=== PATIENT | male | born 1945 | race Caucasian/White ===

== ENCOUNTER 2023-04-11 02:50 | Inpatient (IN) | payer OTHER, MEDICARE ==
[2023-04-11 03:30] LABS: Bacteria/HPF None Seen HPF (None Seen); Bilirubin Negative (Negative); Blood, Urine Negative (Negative); CAUTI Indications for Culture Alt mental st,lethar; Clarity Clear (Clear); Glucose, Urine (Dipstick) Normal (Negative); Ketone, Urine 40 mg/dL (Negative); Leukocyte Negative Leu/uL (Negative); Nitrite Negative (Negative); Protein, Urine (Dipstick) 30 mg/dL (Neg-Trace); RBC/HPF 0-3 HPF (0-3); Specific Gravity, Urine 1.026 (1.002-1.036); Squamous Epithelial 0-3 HPF (0-3); WBC/HPF 0-3 HPF (0-3); pH, Urine 5.5 (5.0-9.0)
[2023-04-11] MEDS ORDERED: Multivitamins, Adult 10 ML, Thiamine HCl 100 MG, Folic Acid 1 MG in Dextrose 5 %-0.45 %... IV SCH (03:30)
[2023-04-11 03:31] LABS: Urine Culture Reflex No No
[2023-04-11 03:35] LABS: Amphetamine Not Detected (NotDetected); Barbiturates Screen Not Detected (NotDetected); Benzodiazepine Screen Not Detected (NotDetected); Cocaine Metabolite Screen Not Detected (NotDetected); Methadone Not Detected (NotDetected); Methamphetamine Not Detected (NotDetected); Opiate Screen Not Detected (NotDetected); Oxycodone Screen Not Detected (NotDetected); Phencyclidine (PCP) Not Detected (NotDetected); THC/Cannabinoid Screen Not Detected (NotDetected); Tricyclic Screen Not Detected (NotDetected)
[2023-04-11 03:48] LABS: #Basophils 0.1 thou/uL (0.0-0.2); %Basophils 0.5 % (0.0-1.0); %Eosinophils 0.1 % (0.0-10.0); %Lymphocytes 7.7 % (21.0-51.0); %Monocytes 8.6 % (0.0-10.0); %Neutrophils 82.7 % (42.0-75.0); Hematocrit 38.7 % (42.0-52.0); Mean Corpuscular HGB CONC 33.6 g/dL (32.0-36.0); Mean Corpuscular Hemoglobin 31.6 pg (27.0-31.0); Mean Corpuscular Volume 93.9 fl (78.0-98.0); Mean Platelet Volume 10.3 fL (7.4-10.4); Platelet Count 275 10x3/uL (130-400); RBC Distribution Width 14.2 % (11.5-14.5); Red Blood Cell (RBC) Count 4.12 mill/uL (4.70-6.10); White Blood Cell (WBC) Count 12.1 10x3/uL (4.8-10.8)
[2023-04-11 04:01] LABS: Prothrombin Time 13.5 sec (12.0-14.7)
[2023-04-11 04:02] LABS: Acetaminophen Less than 10 mcg/mL (10.0-30.0); Alcohol Less than 10.0 mg/dL (Less than 10); Magnesium 1.6 mg/dL (1.6-2.6); PTT 32.1 sec (22.9-36.1); Salicylate Less than 8.0 mg/dL (15.0-30.0)
[2023-04-11 04:04] LABS: ALT (SGPT) 8 U/L (8-55); AST (SGOT) 12 U/L (5-34); Albumin 3.4 g/dL (3.4-4.8); Alkaline Phosphatase 63 U/L (40-110); Anion Gap 13 mmol/L (10-20); BUN (Urea Nitrogen) 11 mg/dL (8.4-25.7); Bilirubin, Total 0.5 mg/dL (0.2-1.2); CK (CPK) 143 U/L (30-200); Calc. Creatinine Clearance 0 mL/min (70-130); Calcium 8.6 mg/dL (7.8-10.44); Carbon Dioxide 24 mmol/L (23-31); Chloride 105 mmol/L (98-107); Estimated GFR 95; Globulin 2.9 g/dL (2.4-3.5); Glucose 93 mg/dL (83-110); Potassium 3.6 mmol/L (3.5-5.1); Protein, Total 6.3 g/dL (5.8-8.1); Sodium 138 mmol/L (136-145)
[2023-04-11] MEDS ORDERED: Bisacodyl 10 MG SUPP PR PRN (07:36)
[2023-04-11] MEDS ORDERED: Acetaminophen 325 MG TAB PO PRN (07:36)
[2023-04-11] MEDS ORDERED: Ondansetron PF 4 MG/2 ML Vial IVP PRN (07:36)
[2023-04-11] MEDS ORDERED: Bisacodyl 5 MG TAB PO PRN (07:36)
[2023-04-11] MEDS ORDERED: Aspirin Chewable 81 MG TAB ONE (07:39)
[2023-04-11] MEDS ORDERED: Sodium Chloride 0.9% 1,000 ML IV SCH (07:45)
[2023-04-11 09:08] LABS: Troponin I 0.014 ng/mL (< 0.028)
[2023-04-11 12:34] LABS: Troponin I 0.017 ng/mL (< 0.028)
[2023-04-11 12:55] VITALS: BMI 19.0
[2023-04-11] MEDS: Atorvastatin Calcium 40 MG TAB PO SCH (20:32)
[2023-04-12 05:19] LABS: #Basophils 0.1 thou/uL (0.0-0.2); #Eosinphils 0.4 thou/uL (0.0-0.7); #Monocytes 1.3 thou/uL (0.11-0.59); #Neutrophils 7.9 thou/uL (1.40-6.50); %Basophils 0.6 % (0.0-1.0); %Eosinophils 3.2 % (0.0-10.0); %Lymphocytes 10.4 % (21.0-51.0); %Monocytes 12.3 % (0.0-10.0); %Neutrophils 73.3 % (42.0-75.0); Hematocrit 35.2 % (42.0-52.0); Hemoglobin 11.8 g/dL (14.0-18.0); Mean Corpuscular HGB CONC 33.5 g/dL (32.0-36.0); Mean Corpuscular Hemoglobin 31.7 pg (27.0-31.0); Mean Corpuscular Volume 94.6 fl (78.0-98.0); Mean Platelet Volume 10.1 fL (7.4-10.4); Platelet Count 220 10x3/uL (130-400); RBC Distribution Width 14.2 % (11.5-14.5); Red Blood Cell (RBC) Count 3.72 mill/uL (4.70-6.10); White Blood Cell (WBC) Count 10.8 10x3/uL (4.8-10.8)
[2023-04-12 05:35] LABS: ALT (SGPT) Less than 7 U/L (8-55); AST (SGOT) 14 U/L (5-34); Alkaline Phosphatase 57 U/L (40-110); Anion Gap 13 mmol/L (10-20); BUN (Urea Nitrogen) 5 mg/dL (8.4-25.7); Bilirubin, Direct 0.3 mg/dL (0.1-0.3); Bilirubin, Total 0.7 mg/dL (0.2-1.2); Calc. Creatinine Clearance 83 mL/min (70-130); Calcium 8.3 mg/dL (7.8-10.44); Carbon Dioxide 22 mmol/L (23-31); Cardiac Risk 3.3 (Less than 4.5); Chloride 105 mmol/L (98-107); Cholesterol 160 mg/dl (< 200 Desired); Estimated GFR 101; Glucose 98 mg/dL (83-110); HDL Cholesterol 48 mg/dL (>60 Neg Risk); LDL Cholesterol, Calculated 99 mg/dL; Magnesium 1.5 mg/dL (1.6-2.6); Potassium 3.6 mmol/L (3.5-5.1); Protein, Total 5.8 g/dL (5.8-8.1); Sodium 136 mmol/L (136-145); Triglycerides 67 mg/dL (Less than 150)
[2023-04-12] MEDS: Aspirin 81 mg Enteric Coated Tablet PO SCH (08:45)
[2023-04-12] MEDS: Ipratropium/Albuterol 3 ML NEB NEB SCH ×2 (19:10→23:05)
[2023-04-12] MEDS: Mometasone 200 MCG/Formoterol 5 MCG 120 PUFF INHALER INH SCH (19:14)
[2023-04-12] MEDS: Atorvastatin Calcium 40 MG TAB PO SCH (21:13)
[2023-04-13] MEDS: Ipratropium/Albuterol 3 ML NEB NEB SCH ×6 (03:46→22:09)
[2023-04-13 05:02] LABS: #Basophils 0.1 thou/uL (0.0-0.2); #Eosinphils 0.5 thou/uL (0.0-0.7); #Monocytes 1.3 thou/uL (0.11-0.59); #Neutrophils 5.8 thou/uL (1.40-6.50); %Basophils 0.7 % (0.0-1.0); %Eosinophils 5.7 % (0.0-10.0); %Lymphocytes 14.5 % (21.0-51.0); %Monocytes 14.6 % (0.0-10.0); %Neutrophils 64.3 % (42.0-75.0); Hematocrit 34.1 % (42.0-52.0); Hemoglobin 11.7 g/dL (14.0-18.0); Mean Corpuscular HGB CONC 34.3 g/dL (32.0-36.0); Mean Corpuscular Hemoglobin 31.7 pg (27.0-31.0); Mean Corpuscular Volume 92.4 fl (78.0-98.0); Mean Platelet Volume 10.3 fL (7.4-10.4); Platelet Count 215 10x3/uL (130-400); RBC Distribution Width 13.9 % (11.5-14.5); Red Blood Cell (RBC) Count 3.69 mill/uL (4.70-6.10); White Blood Cell (WBC) Count 9.1 10x3/uL (4.8-10.8)
[2023-04-13 05:27] LABS: Anion Gap 12 mmol/L (10-20); BUN (Urea Nitrogen) 7 mg/dL (8.4-25.7); Calc. Creatinine Clearance 78 mL/min (70-130); Calcium 8.6 mg/dL (7.8-10.44); Carbon Dioxide 25 mmol/L (23-31); Chloride 102 mmol/L (98-107); Estimated GFR 99; Glucose 96 mg/dL (83-110); Magnesium 1.6 mg/dL (1.6-2.6); Potassium 3.7 mmol/L (3.5-5.1); Sodium 135 mmol/L (136-145)
[2023-04-13] MEDS: Mometasone 200 MCG/Formoterol 5 MCG 120 PUFF INHALER INH SCH ×2 (07:35→19:06)
[2023-04-13] MEDS: Aspirin 81 mg Enteric Coated Tablet PO SCH (10:19)
[2023-04-13] MEDS ORDERED: levETIRAcetam 500 MG TAB PO SCH (11:45)
[2023-04-13] MEDS: levETIRAcetam 500 MG TAB PO SCH (21:30)
[2023-04-13] MEDS: Atorvastatin Calcium 40 MG TAB PO SCH (21:30)
[2023-04-14] MEDS: Ipratropium/Albuterol 3 ML NEB NEB SCH ×6 (01:40→22:23)
[2023-04-14 05:17] LABS: #Basophils 0.1 thou/uL (0.0-0.2); #Eosinphils 0.3 thou/uL (0.0-0.7); #Monocytes 1.4 thou/uL (0.11-0.59); #Neutrophils 7.8 thou/uL (1.40-6.50); %Basophils 0.7 % (0.0-1.0); %Eosinophils 2.7 % (0.0-10.0); %Lymphocytes 10.2 % (21.0-51.0); %Monocytes 13.1 % (0.0-10.0); %Neutrophils 72.9 % (42.0-75.0); Hematocrit 33.4 % (42.0-52.0); Hemoglobin 11.2 g/dL (14.0-18.0); Mean Corpuscular HGB CONC 33.5 g/dL (32.0-36.0); Mean Corpuscular Hemoglobin 31.6 pg (27.0-31.0); Mean Corpuscular Volume 94.4 fl (78.0-98.0); Mean Platelet Volume 10.6 fL (7.4-10.4); Platelet Count 238 10x3/uL (130-400); Red Blood Cell (RBC) Count 3.54 mill/uL (4.70-6.10); White Blood Cell (WBC) Count 10.7 10x3/uL (4.8-10.8)
[2023-04-14 05:44] LABS: Anion Gap 12 mmol/L (10-20); BUN (Urea Nitrogen) 10 mg/dL (8.4-25.7); Calc. Creatinine Clearance 71 mL/min (70-130); Calcium 8.7 mg/dL (7.8-10.44); Carbon Dioxide 26 mmol/L (23-31); Chloride 101 mmol/L (98-107); Estimated GFR 96; Glucose 103 mg/dL (83-110); Magnesium 1.6 mg/dL (1.6-2.6); Potassium 3.7 mmol/L (3.5-5.1); Sodium 135 mmol/L (136-145)
[2023-04-14] MEDS: Mometasone 200 MCG/Formoterol 5 MCG 120 PUFF INHALER INH SCH ×2 (06:34→18:21)
[2023-04-14] MEDS: Aspirin 81 mg Enteric Coated Tablet PO SCH (15:53)
[2023-04-14] MEDS: levETIRAcetam 500 MG TAB PO SCH ×2 (15:53→20:15)
[2023-04-14] MEDS: Senokot S 8.6-50 MG TAB PO PRN (15:53)
[2023-04-14] MEDS: Atorvastatin Calcium 40 MG TAB PO SCH (20:15)
[2023-04-15] MEDS: Ipratropium/Albuterol 3 ML NEB NEB SCH ×4 (02:10→14:20)
[2023-04-15] MEDS: Mometasone 200 MCG/Formoterol 5 MCG 120 PUFF INHALER INH SCH (06:31)
[2023-04-15] MEDS: levETIRAcetam 500 MG TAB PO SCH (09:58)
[2023-04-15] MEDS: Aspirin 81 mg Enteric Coated Tablet PO SCH (09:58)
[2023-04-15] MEDS: Senokot S 8.6-50 MG TAB PO PRN (10:10)
[2023-04-15 11:31] VITALS: BP 132/60; TEMP 98.3
== END 2023-04-15 14:55 | DRG 65 ==
LOC: SUATTDRO 02:50 → ERS 02:50 → ERHOLD 07:36 → 2SW 11:13 → OBSVTOIN 12:43 → 2SE 17:13
PROVIDERS: ADMIT Family Medicine; ATTEND Family Medicine
PROC: 0T9B70Z Drainage of Bladder with Drainage Device, Via Natural or Artificial Opening (ICD-10-PCS; principal; 2023-04-11)
PROC: 4A00X4Z Measurement of Central Nervous Electrical Activity, External Approach (ICD-10-PCS; 2023-04-12)
DX: I63.512 Cerebral infarction due to unspecified occlusion or stenosis of left middle cerebral artery (principal); G81.91 Hemiplegia, unspecified affecting right dominant side; R20.0 Anesthesia of skin; J44.9 Chronic obstructive pulmonary disease, unspecified; I10 Essential (primary) hypertension; R55 Syncope and collapse; R29.712 NIHSS score 12; Z79.82 Long term (current) use of aspirin; Z98.49 Cataract extraction status, unspecified eye; Z79.899 Other long term (current) drug therapy; Z51.5 Encounter for palliative care; Z66 Do not resuscitate
CPT/HCPCS: 36415; 36416; 51701; 70450; 70551; 71045; 80048; 80053; 80061; 80076; 80306; 80307; 81001; 82550; 83036; 83735; 84443; 84484; 85025; 85610; 85730; 93005; 93306; 93880; 94640; 94664; 94760; 95712; 95819; 95957; 96361; 96365; 96366; 97139; J3411; J7042; J7050; J7620

== ENCOUNTER 2023-07-14 11:19 | Inpatient (IN) | payer OTHER ==
[2023-07-14] MEDS ORDERED: Cefepime 1 GM VIAL ONE (11:52)
[2023-07-14] MEDS ORDERED: Sodium Chloride 0.9% 100 ML ONE (11:53)
[2023-07-14 12:12] LABS: #Basophils 0.1 thou/uL (0.0-0.2); #Monocytes 0.5 thou/uL (0.11-0.59); #Neutrophils 9.1 thou/uL (1.40-6.50); %Basophils 0.5 % (0.0-1.0); %Eosinophils 0.2 % (0.0-10.0); %Lymphocytes 8.4 % (21.0-51.0); %Monocytes 5.1 % (0.0-10.0); %Neutrophils 85.2 % (42.0-75.0); Hemoglobin 12.7 g/dL (14.0-18.0); Mean Corpuscular HGB CONC 34.3 g/dL (32.0-36.0); Mean Corpuscular Hemoglobin 30.3 pg (27.0-31.0); Mean Corpuscular Volume 88.3 fl (78.0-98.0); Mean Platelet Volume 9.4 fL (7.4-10.4); Platelet Count 466 10x3/uL (130-400); RBC Distribution Width 16.2 % (11.5-14.5); Red Blood Cell (RBC) Count 4.19 mill/uL (4.70-6.10); White Blood Cell (WBC) Count 10.6 10x3/uL (4.8-10.8)
[2023-07-14 12:37] LABS: ALT (SGPT) Less than 7 U/L (8-55); AST (SGOT) 12 U/L (5-34); Albumin 3.3 g/dL (3.4-4.8); Alkaline Phosphatase 93 U/L (40-110); Anion Gap 17 mmol/L (10-20); BUN (Urea Nitrogen) 8 mg/dL (8.4-25.7); Bilirubin, Total 0.4 mg/dL (0.2-1.2); Calc. Creatinine Clearance 0 mL/min (70-130); Calcium 9.1 mg/dL (7.8-10.44); Carbon Dioxide 20 mmol/L (23-31); Chloride 96 mmol/L (98-107); Estimated GFR 101; Glucose 76 mg/dL (83-110); Potassium 3.9 mmol/L (3.5-5.1); Protein, Total 6.3 g/dL (5.8-8.1); Sodium 129 mmol/L (136-145)
[2023-07-14 12:39] LABS: INR-International Normal Ratio 0.9; Prothrombin Time 12.8 sec (12.0-14.7)
[2023-07-14 12:40] LABS: PTT 43.2 sec (22.9-36.1)
[2023-07-14] MEDS ORDERED: Vancomycin 1 GM/200 ML (FROZEN) BAG ONE (12:58)
[2023-07-14 14:20] LABS: Bacteria/HPF None Seen HPF (None Seen); Bilirubin Negative (Negative); Blood, Urine Negative (Negative); CAUTI Indications for Culture Fever or rigors; Clarity Clear (Clear); Glucose, Urine (Dipstick) Normal (Negative); Ketone, Urine 60 mg/dL (Negative); Leukocyte Negative Leu/uL (Negative); Nitrite Negative (Negative); Protein, Urine (Dipstick) Negative (Neg-Trace); RBC/HPF 0-3 HPF (0-3); Specific Gravity, Urine 1.015 (1.002-1.036); Squamous Epithelial None Seen HPF (0-3); Urobilinogen Normal mg/dL (Less than 2); WBC/HPF 0-3 HPF (0-3); pH, Urine 5.5 (5.0-9.0)
[2023-07-14 14:21] LABS: Urine Culture Reflex No No
[2023-07-14 18:07] VITALS: BMI 16.0
[2023-07-14] MEDS ORDERED: Acetaminophen 325 MG TAB PO PRN (18:07)
[2023-07-14] MEDS ORDERED: Ondansetron PF 4 MG/2 ML Vial IVP PRN (18:07)
[2023-07-14] MEDS: Nicotine 14 MG PATCH TD SCH (18:44)
[2023-07-14] MEDS: dilTIAZem 30 MG TAB PO SCH ×2 (18:44→19:52)
[2023-07-14] MEDS: Mometasone 200 MCG/Formoterol 5 MCG 120 PUFF INHALER INH SCH (19:34)
[2023-07-14] MEDS: Atorvastatin Calcium 40 MG TAB PO SCH (19:52)
[2023-07-14] MEDS: levETIRAcetam 500 MG TAB PO SCH (19:52)
[2023-07-14] MEDS: HYDROcodone/Acetaminophen 5/325 mg Tablet PO PRN (19:52)
[2023-07-14] MEDS: Cefepime 2 GM in Sodium Chloride 0.9% 100 ML IVPB SCH (19:54)
[2023-07-15] MEDS: Vancomycin HCl 750 MG in Sodium Chloride 0.9% 250 ML 250 ML IVPB SCH ×2 (00:25→13:38)
[2023-07-15 04:27] LABS: #Basophils 0.1 thou/uL (0.0-0.2); #Eosinphils 0.3 thou/uL (0.0-0.7); #Neutrophils 7.3 thou/uL (1.40-6.50); %Basophils 0.7 % (0.0-1.0); %Eosinophils 3.2 % (0.0-10.0); %Monocytes 9.1 % (0.0-10.0); %Neutrophils 70.4 % (42.0-75.0); Hematocrit 30.5 % (42.0-52.0); Hemoglobin 10.3 g/dL (14.0-18.0); Mean Corpuscular HGB CONC 33.8 g/dL (32.0-36.0); Mean Corpuscular Hemoglobin 29.7 pg (27.0-31.0); Mean Corpuscular Volume 87.9 fl (78.0-98.0); Mean Platelet Volume 9.5 fL (7.4-10.4); Platelet Count 428 10x3/uL (130-400); RBC Distribution Width 16.6 % (11.5-14.5); Red Blood Cell (RBC) Count 3.47 mill/uL (4.70-6.10); White Blood Cell (WBC) Count 10.4 10x3/uL (4.8-10.8)
[2023-07-15 04:52] LABS: Anion Gap 13 mmol/L (10-20); BUN (Urea Nitrogen) 6 mg/dL (8.4-25.7); Calc. Creatinine Clearance 78 mL/min (70-130); Calcium 7.9 mg/dL (7.8-10.44); Carbon Dioxide 24 mmol/L (23-31); Chloride 100 mmol/L (98-107); Estimated GFR 102; Glucose 83 mg/dL (83-110); Potassium 3.6 mmol/L (3.5-5.1); Sodium 133 mmol/L (136-145)
[2023-07-15] MEDS: Mometasone 200 MCG/Formoterol 5 MCG 120 PUFF INHALER INH SCH ×2 (07:00→18:37)
[2023-07-15] MEDS: Cefepime 2 GM in Sodium Chloride 0.9% 100 ML IVPB SCH ×2 (09:46→20:21)
[2023-07-15] MEDS: Aspirin 81 mg Enteric Coated Tablet PO SCH (09:46)
[2023-07-15] MEDS: levETIRAcetam 500 MG TAB PO SCH ×2 (09:46→20:21)
[2023-07-15] MEDS: dilTIAZem 30 MG TAB PO SCH ×4 (09:46→20:23)
[2023-07-15] MEDS: HYDROcodone/Acetaminophen 5/325 mg Tablet PO PRN ×2 (09:47→21:02)
[2023-07-15] MEDS ORDERED: Lidocaine 1% (PF) 30 ML VIAL SC SCH (11:15)
[2023-07-15 19:06] LABS: Cardiac Risk 3.6 (Less than 4.5)
[2023-07-15] MEDS: Nicotine 14 MG PATCH TD SCH (20:21)
[2023-07-15] MEDS: Atorvastatin Calcium 40 MG TAB PO SCH (20:21)
[2023-07-16] MEDS: Vancomycin HCl 750 MG in Sodium Chloride 0.9% 250 ML 250 ML IVPB SCH (00:26)
[2023-07-16] MEDS: HYDROcodone/Acetaminophen 5/325 mg Tablet PO PRN ×4 (01:31→20:58)
[2023-07-16 02:24] LABS: Vancomycin, Trough 25.3 ug/mL
[2023-07-16] MEDS: Mometasone 200 MCG/Formoterol 5 MCG 120 PUFF INHALER INH SCH ×2 (06:59→18:37)
[2023-07-16] MEDS: dilTIAZem 30 MG TAB PO SCH ×4 (09:00→20:59)
[2023-07-16] MEDS: Aspirin 81 mg Enteric Coated Tablet PO SCH (09:00)
[2023-07-16] MEDS: Cefepime 2 GM in Sodium Chloride 0.9% 100 ML IVPB SCH ×2 (09:00→20:59)
[2023-07-16] MEDS: levETIRAcetam 500 MG TAB PO SCH (09:00)
[2023-07-16] MEDS: Atorvastatin Calcium 40 MG TAB PO SCH (20:59)
[2023-07-17] MEDS: HYDROcodone/Acetaminophen 5/325 mg Tablet PO PRN (05:40)
[2023-07-17] MEDS: Mometasone 200 MCG/Formoterol 5 MCG 120 PUFF INHALER INH SCH ×2 (06:55→18:44)
[2023-07-17] MEDS: Cefepime 2 GM in Sodium Chloride 0.9% 100 ML IVPB SCH ×2 (08:21→21:55)
[2023-07-17] MEDS: dilTIAZem 30 MG TAB PO SCH ×4 (08:21→21:56)
[2023-07-17] MEDS: Aspirin 81 mg Enteric Coated Tablet PO SCH (09:03)
[2023-07-17] MEDS: Morphine 2 MG/ML VIAL SLOW IVP PRN (16:07)
[2023-07-17] MEDS: Atorvastatin Calcium 40 MG TAB PO SCH (21:56)
[2023-07-18] MEDS: Mometasone 200 MCG/Formoterol 5 MCG 120 PUFF INHALER INH SCH ×2 (07:37→19:00)
[2023-07-18] MEDS: HYDROcodone/Acetaminophen 5/325 mg Tablet PO PRN (08:13)
[2023-07-18] MEDS: Cefepime 2 GM in Sodium Chloride 0.9% 100 ML IVPB SCH ×2 (08:13→20:39)
[2023-07-18] MEDS: Aspirin 81 mg Enteric Coated Tablet PO SCH (08:13)
[2023-07-18] MEDS: dilTIAZem 30 MG TAB PO SCH ×4 (08:13→20:49)
[2023-07-18] MEDS: Atorvastatin Calcium 40 MG TAB PO SCH (20:39)
[2023-07-19] MEDS: HYDROcodone/Acetaminophen 5/325 mg Tablet PO PRN ×2 (04:06→09:29)
[2023-07-19] MEDS: Mometasone 200 MCG/Formoterol 5 MCG 120 PUFF INHALER INH SCH ×2 (07:11→18:56)
[2023-07-19] MEDS: Cefepime 2 GM in Sodium Chloride 0.9% 100 ML IVPB SCH ×2 (08:03→20:30)
[2023-07-19] MEDS: Aspirin 81 mg Enteric Coated Tablet PO SCH (08:08)
[2023-07-19] MEDS: dilTIAZem 30 MG TAB PO SCH ×4 (08:08→20:30)
[2023-07-19] MEDS ORDERED: SUGAMMADEX SODIUM 200 MG/2 ML VIAL ONE (08:52)
[2023-07-19] MEDS ORDERED: fentaNYL PF 100 MCG/2 ML SYRINGE ONE ×2 (08:52→13:21)
[2023-07-19] MEDS ORDERED: Midazolam HCl 2 mg/2 ml Vial ONE (08:52)
[2023-07-19] MEDS ORDERED: Lidocaine 2% PF 100 mg/5 ml Syringe ONE (08:54)
[2023-07-19] MEDS ORDERED: Dexamethasone 20 MG/5 ML VIAL ONE ×2 (08:54→12:39)
[2023-07-19] MEDS ORDERED: Dexamethasone 4 mg/ml Vial ONE (08:54)
[2023-07-19] MEDS ORDERED: PROPOFOL 20 ML ONE (08:54)
[2023-07-19] MEDS ORDERED: PHENYLEPHRINE-NS 100 MCG/ML 10 ML SYRINGE ONE (08:54)
[2023-07-19] MEDS ORDERED: Heparin 5,000 UNITS/ML VIAL ONE (11:39)
[2023-07-19] MEDS ORDERED: Rocuronium Bromide 50 MG/5 ML VIAL ONE (11:40)
[2023-07-19] MEDS ORDERED: Protamine Sulfate 50 MG/5 ML VIAL ONE (11:40)
[2023-07-19] MEDS ORDERED: Ondansetron PF 4 MG/2 ML Vial ONE (12:39)
[2023-07-19] MEDS ORDERED: Rocuronium Bromide 10 MG/ML (10ML VIAL) ONE (12:39)
[2023-07-19] MEDS ORDERED: Lidocaine 1% PF 5 ML VIAL ONE (12:39)
[2023-07-19] MEDS ORDERED: PROPOFOL 200 MG/20 ML VIAL ONE (12:39)
[2023-07-19] MEDS ORDERED: hydrALAZINE 20 MG/ML VIAL ONE ×2 (13:20→13:21)
[2023-07-19] MEDS ORDERED: Heparin 10,000 UNITS/ 10 ML VIAL ONE (13:48)
[2023-07-19] MEDS ORDERED: Bupivacaine PF 0.5% 30 ML VIAL ONE (14:01)
[2023-07-19] MEDS ORDERED: Fentanyl 100 MCG/2 ML VIAL SLOW IVP PRN (14:58)
[2023-07-19] MEDS ORDERED: fentaNYL 50 mcg/mL 1 mL Vial SLOW IVP SCH (15:15)
[2023-07-19] MEDS: Lactated Ringer's 1,000 ML IV SCH (16:24)
[2023-07-19] MEDS: Atorvastatin Calcium 40 MG TAB PO SCH (20:30)
[2023-07-20] MEDS: HYDROcodone/Acetaminophen 5/325 mg Tablet PO PRN (06:07)
[2023-07-20] MEDS: Mometasone 200 MCG/Formoterol 5 MCG 120 PUFF INHALER INH SCH ×2 (07:53→18:27)
[2023-07-20] MEDS: dilTIAZem 30 MG TAB PO SCH ×4 (08:00→21:15)
[2023-07-20] MEDS: Polyethylene Glycol 3350 17 GM Packet PO SCH (09:53)
[2023-07-20] MEDS: Aspirin 81 mg Enteric Coated Tablet PO SCH (09:53)
[2023-07-20] MEDS: Lactated Ringer's 1,000 ML IV SCH (09:54)
[2023-07-20] MEDS: Cefepime 2 GM in Sodium Chloride 0.9% 100 ML IVPB SCH ×2 (09:54→21:15)
[2023-07-20] MEDS: Morphine 2 MG/ML VIAL SLOW IVP PRN ×2 (11:35→17:24)
[2023-07-20] MEDS ORDERED: Calcium Carbonate 500 MG ChewTAB PO PRN (19:39)
[2023-07-20] MEDS: Atorvastatin Calcium 40 MG TAB PO SCH (21:15)
[2023-07-21] MEDS: HYDROcodone/Acetaminophen 5/325 mg Tablet PO PRN ×2 (04:46→12:09)
[2023-07-21] MEDS ORDERED: EPINEPHrine 1 MG/ML VIAL ONE (06:38)
[2023-07-21] MEDS ORDERED: Protamine Sulfate 50 MG/5 ML VIAL ONE (06:38)
[2023-07-21] MEDS ORDERED: Heparin 5,000 UNITS/ML VIAL ONE (06:38)
[2023-07-21] MEDS ORDERED: Bupivacaine PF 0.5% 30 ML VIAL ONE (06:39)
[2023-07-21] MEDS ORDERED: Lidocaine 2% PF 100 mg/5 ml Syringe ONE (06:52)
[2023-07-21] MEDS ORDERED: PROPOFOL 20 ML ONE (06:52)
[2023-07-21] MEDS ORDERED: SUGAMMADEX SODIUM 200 MG/2 ML VIAL ONE (06:52)
[2023-07-21] MEDS ORDERED: Heparin 10,000 UNITS/ 10 ML VIAL ONE (06:52)
[2023-07-21] MEDS ORDERED: Midazolam HCl 2 mg/2 ml Vial ONE (06:52)
[2023-07-21] MEDS ORDERED: ePHEDrine Sulfate 50 MG/10 ML VIAL ONE (06:52)
[2023-07-21] MEDS ORDERED: fentaNYL PF 100 MCG/2 ML SYRINGE ONE (06:52)
[2023-07-21] MEDS ORDERED: Lidocaine 2% PF 5 ML VIAL ONE (06:52)
[2023-07-21] MEDS ORDERED: Ondansetron PF 4 MG/2 ML Vial ONE ×2 (06:53→07:32)
[2023-07-21] MEDS ORDERED: Sterile Water 10 ML ONE (06:53)
[2023-07-21] MEDS ORDERED: Dexamethasone 4 mg/ml Vial ONE (06:53)
[2023-07-21] MEDS ORDERED: Rocuronium Bromide 10 MG/ML (10ML VIAL) ONE ×2 (06:53→07:32)
[2023-07-21] MEDS ORDERED: PHENYLEPHRINE-NS 100 MCG/ML 10 ML SYRINGE ONE (06:53)
[2023-07-21] MEDS ORDERED: CEFAZOLIN 1 GM VIAL ONE (06:54)
[2023-07-21] MEDS: Lactated Ringer's 1,000 ML IV SCH ×2 (06:58→12:10)
[2023-07-21] MEDS: Mometasone 200 MCG/Formoterol 5 MCG 120 PUFF INHALER INH SCH ×2 (06:58→18:25)
[2023-07-21] MEDS ORDERED: Dexamethasone 20 MG/5 ML VIAL ONE (07:32)
[2023-07-21] MEDS ORDERED: Lidocaine 1% PF 5 ML VIAL ONE (07:32)
[2023-07-21] MEDS ORDERED: PROPOFOL 200 MG/20 ML VIAL ONE (07:32)
[2023-07-21] MEDS: dilTIAZem 30 MG TAB PO SCH ×4 (07:37→20:37)
[2023-07-21] MEDS ORDERED: fentaNYL 50 mcg/mL 1 mL Vial ONE (09:06)
[2023-07-21] MEDS ORDERED: Sevoflurane 250 ML INH ANEST BOTTLE ONE (09:19)
[2023-07-21] MEDS: Aspirin 81 mg Enteric Coated Tablet PO SCH (09:37)
[2023-07-21] MEDS: Polyethylene Glycol 3350 17 GM Packet PO SCH (09:37)
[2023-07-21] MEDS: Cefepime 2 GM in Sodium Chloride 0.9% 100 ML IVPB SCH ×2 (11:55→20:37)
[2023-07-21] MEDS: Atorvastatin Calcium 40 MG TAB PO SCH (20:37)
[2023-07-22 04:11] LABS: #Monocytes 1.5 thou/uL (0.11-0.59); #Neutrophils 10.7 thou/uL (1.40-6.50); %Basophils 0.1 % (0.0-1.0); %Lymphocytes 5.1 % (21.0-51.0); %Monocytes 11.3 % (0.0-10.0); %Neutrophils 83.2 % (42.0-75.0); Hematocrit 24.6 % (42.0-52.0); Hemoglobin 8.3 g/dL (14.0-18.0); Mean Corpuscular HGB CONC 33.7 g/dL (32.0-36.0); Mean Corpuscular Hemoglobin 30.1 pg (27.0-31.0); Mean Corpuscular Volume 89.1 fl (78.0-98.0); Mean Platelet Volume 10.5 fL (7.4-10.4); Platelet Count 306 10x3/uL (130-400); Red Blood Cell (RBC) Count 2.76 mill/uL (4.70-6.10); White Blood Cell (WBC) Count 12.9 10x3/uL (4.8-10.8)
[2023-07-22 04:47] LABS: Anion Gap 12 mmol/L (10-20); BUN (Urea Nitrogen) 13 mg/dL (8.4-25.7); Calc. Creatinine Clearance 75 mL/min (70-130); Carbon Dioxide 26 mmol/L (23-31); Chloride 99 mmol/L (98-107); Estimated GFR 101; Glucose 117 mg/dL (83-110); Potassium 4.1 mmol/L (3.5-5.1); Sodium 133 mmol/L (136-145)
[2023-07-22] MEDS: Mometasone 200 MCG/Formoterol 5 MCG 120 PUFF INHALER INH SCH ×2 (07:08→18:34)
[2023-07-22] MEDS: Cefepime 2 GM in Sodium Chloride 0.9% 100 ML IVPB SCH ×2 (08:58→20:21)
[2023-07-22] MEDS: dilTIAZem 30 MG TAB PO SCH ×4 (08:58→20:20)
[2023-07-22] MEDS: Multivitamin W/ Minerals 1 TAB PO SCH (08:58)
[2023-07-22] MEDS: Aspirin 81 mg Enteric Coated Tablet PO SCH (08:58)
[2023-07-22] MEDS: Multivit, Therapeutic 1 TAB PO SCH (08:59)
[2023-07-22] MEDS: Thiamine 100 MG TAB PO SCH (08:59)
[2023-07-22] MEDS: Polyethylene Glycol 3350 17 GM Packet PO SCH (08:59)
[2023-07-22] MEDS: Folic Acid 1 MG TAB PO SCH (08:59)
[2023-07-22] MEDS: HYDROcodone/Acetaminophen 5/325 mg Tablet PO PRN ×2 (11:30→17:15)
[2023-07-22] MEDS: Atorvastatin Calcium 40 MG TAB PO SCH (20:21)
[2023-07-23] MEDS: Mometasone 200 MCG/Formoterol 5 MCG 120 PUFF INHALER INH SCH ×2 (07:13→19:29)
[2023-07-23] MEDS: Polyethylene Glycol 3350 17 GM Packet PO SCH (08:15)
[2023-07-23] MEDS: dilTIAZem 30 MG TAB PO SCH ×4 (08:15→20:55)
[2023-07-23] MEDS: Folic Acid 1 MG TAB PO SCH (08:15)
[2023-07-23] MEDS: HYDROcodone/Acetaminophen 5/325 mg Tablet PO PRN ×2 (08:15→14:52)
[2023-07-23] MEDS: Multivit, Therapeutic 1 TAB PO SCH (08:15)
[2023-07-23] MEDS: Cefepime 2 GM in Sodium Chloride 0.9% 100 ML IVPB SCH ×2 (08:15→20:55)
[2023-07-23] MEDS: Aspirin 81 mg Enteric Coated Tablet PO SCH (08:15)
[2023-07-23] MEDS: Thiamine 100 MG TAB PO SCH (08:15)
[2023-07-23] MEDS: Multivitamin W/ Minerals 1 TAB PO SCH (10:59)
[2023-07-23] MEDS ORDERED: Magnesium Citrate 300 ML BOT PO SCH (11:45)
[2023-07-23] MEDS: Atorvastatin Calcium 40 MG TAB PO SCH (20:55)
[2023-07-24] MEDS: Mometasone 200 MCG/Formoterol 5 MCG 120 PUFF INHALER INH SCH ×2 (07:56→19:54)
[2023-07-24] MEDS: Cefepime 2 GM in Sodium Chloride 0.9% 100 ML IVPB SCH ×2 (08:45→20:30)
[2023-07-24] MEDS: Thiamine 100 MG TAB PO SCH (08:45)
[2023-07-24] MEDS: Folic Acid 1 MG TAB PO SCH (08:45)
[2023-07-24] MEDS: Multivitamin W/ Minerals 1 TAB PO SCH (08:45)
[2023-07-24] MEDS: Aspirin 81 mg Enteric Coated Tablet PO SCH (08:45)
[2023-07-24] MEDS: Multivit, Therapeutic 1 TAB PO SCH (08:45)
[2023-07-24] MEDS: dilTIAZem 30 MG TAB PO SCH ×4 (08:45→20:30)
[2023-07-24] MEDS: Polyethylene Glycol 3350 17 GM Packet PO SCH (08:46)
[2023-07-24] MEDS: Atorvastatin Calcium 40 MG TAB PO SCH (20:31)
[2023-07-24] MEDS: Apixaban 5 MG TAB PO SCH (20:32)
[2023-07-25] MEDS: Mometasone 200 MCG/Formoterol 5 MCG 120 PUFF INHALER INH SCH ×2 (06:58→18:45)
[2023-07-25] MEDS: Aspirin 81 mg Enteric Coated Tablet PO SCH (08:19)
[2023-07-25] MEDS: Apixaban 5 MG TAB PO SCH ×2 (08:19→22:15)
[2023-07-25] MEDS: dilTIAZem 30 MG TAB PO SCH ×4 (08:19→22:15)
[2023-07-25] MEDS: Multivitamin W/ Minerals 1 TAB PO SCH (08:20)
[2023-07-25] MEDS: Multivit, Therapeutic 1 TAB PO SCH (08:20)
[2023-07-25] MEDS: Folic Acid 1 MG TAB PO SCH (08:20)
[2023-07-25] MEDS: Thiamine 100 MG TAB PO SCH (08:20)
[2023-07-25] MEDS: Cefepime 2 GM in Sodium Chloride 0.9% 100 ML IVPB SCH ×2 (08:20→22:13)
[2023-07-25] MEDS: Polyethylene Glycol 3350 17 GM Packet PO SCH (08:21)
[2023-07-25] MEDS ORDERED: Gabapentin 300 MG CAP PO SCH (12:30)
[2023-07-25] MEDS: Atorvastatin Calcium 40 MG TAB PO SCH (22:14)
[2023-07-25] MEDS: Gabapentin 300 MG CAP PO SCH (22:15)
[2023-07-26] MEDS: Mometasone 200 MCG/Formoterol 5 MCG 120 PUFF INHALER INH SCH ×2 (07:50→18:01)
[2023-07-26] MEDS: dilTIAZem 30 MG TAB PO SCH ×4 (08:13→21:59)
[2023-07-26] MEDS: Multivit, Therapeutic 1 TAB PO SCH (08:13)
[2023-07-26] MEDS: Thiamine 100 MG TAB PO SCH (08:13)
[2023-07-26] MEDS: Aspirin 81 mg Enteric Coated Tablet PO SCH (08:13)
[2023-07-26] MEDS: Folic Acid 1 MG TAB PO SCH (08:13)
[2023-07-26] MEDS: Polyethylene Glycol 3350 17 GM Packet PO SCH (08:14)
[2023-07-26] MEDS: Apixaban 5 MG TAB PO SCH ×2 (08:14→21:59)
[2023-07-26] MEDS: Gabapentin 300 MG CAP PO SCH ×2 (08:14→21:59)
[2023-07-26] MEDS: Multivitamin W/ Minerals 1 TAB PO SCH (08:14)
[2023-07-26 08:34] LABS: #Eosinphils 0.6 thou/uL (0.0-0.7); #Monocytes 1.4 thou/uL (0.11-0.59); #Neutrophils 10.3 thou/uL (1.40-6.50); %Basophils 0.1 % (0.0-1.0); %Eosinophils 4.2 % (0.0-10.0); %Lymphocytes 5.6 % (21.0-51.0); %Monocytes 10.5 % (0.0-10.0); Hematocrit 28.1 % (42.0-52.0); Hemoglobin 9.4 g/dL (14.0-18.0); Mean Corpuscular HGB CONC 33.5 g/dL (32.0-36.0); Mean Corpuscular Hemoglobin 29.7 pg (27.0-31.0); Mean Corpuscular Volume 88.9 fl (78.0-98.0); Mean Platelet Volume 10.2 fL (7.4-10.4); Platelet Count 454 10x3/uL (130-400); RBC Distribution Width 17.1 % (11.5-14.5); Red Blood Cell (RBC) Count 3.16 mill/uL (4.70-6.10)
[2023-07-26 08:54] LABS: Anion Gap 10 mmol/L (10-20); BUN (Urea Nitrogen) 10 mg/dL (8.4-25.7); Calc. Creatinine Clearance 89 mL/min (70-130); Calcium 7.8 mg/dL (7.8-10.44); Carbon Dioxide 29 mmol/L (23-31); Chloride 94 mmol/L (98-107); Estimated GFR 106; Glucose 103 mg/dL (83-110); Sodium 129 mmol/L (136-145)
[2023-07-26] MEDS ORDERED: Gabapentin 300 MG CAP PO SCH (09:30)
[2023-07-26] MEDS: Atorvastatin Calcium 40 MG TAB PO SCH (21:59)
[2023-07-27] MEDS: Mometasone 200 MCG/Formoterol 5 MCG 120 PUFF INHALER INH SCH ×2 (06:51→17:53)
[2023-07-27] MEDS: Gabapentin 300 MG CAP PO SCH ×2 (08:10→20:10)
[2023-07-27] MEDS: Aspirin 81 mg Enteric Coated Tablet PO SCH (08:11)
[2023-07-27] MEDS: dilTIAZem 30 MG TAB PO SCH ×4 (08:11→20:10)
[2023-07-27] MEDS: Apixaban 5 MG TAB PO SCH ×2 (08:11→20:10)
[2023-07-27] MEDS: Multivitamin W/ Minerals 1 TAB PO SCH (08:11)
[2023-07-27] MEDS: Folic Acid 1 MG TAB PO SCH (08:11)
[2023-07-27] MEDS: Polyethylene Glycol 3350 17 GM Packet PO SCH (08:12)
[2023-07-27] MEDS: Multivit, Therapeutic 1 TAB PO SCH (08:12)
[2023-07-27] MEDS: Thiamine 100 MG TAB PO SCH (08:13)
[2023-07-27] MEDS: Atorvastatin Calcium 40 MG TAB PO SCH (20:10)
[2023-07-28] MEDS: Mometasone 200 MCG/Formoterol 5 MCG 120 PUFF INHALER INH SCH ×2 (07:16→18:51)
[2023-07-28] MEDS: Gabapentin 300 MG CAP PO SCH ×2 (09:53→20:34)
[2023-07-28] MEDS: Multivit, Therapeutic 1 TAB PO SCH (09:54)
[2023-07-28] MEDS: Polyethylene Glycol 3350 17 GM Packet PO SCH ×2 (09:54→14:19)
[2023-07-28] MEDS: Apixaban 5 MG TAB PO SCH ×2 (09:54→20:34)
[2023-07-28] MEDS: Thiamine 100 MG TAB PO SCH (09:54)
[2023-07-28] MEDS: Multivitamin W/ Minerals 1 TAB PO SCH (09:54)
[2023-07-28] MEDS: Folic Acid 1 MG TAB PO SCH (09:54)
[2023-07-28] MEDS: Aspirin 81 mg Enteric Coated Tablet PO SCH (09:54)
[2023-07-28] MEDS: dilTIAZem 30 MG TAB PO SCH ×4 (09:54→20:34)
[2023-07-28] MEDS: Atorvastatin Calcium 40 MG TAB PO SCH (20:34)
[2023-07-29 05:00] LABS: Anion Gap 13 mmol/L (10-20); BUN (Urea Nitrogen) 10 mg/dL (8.4-25.7); Calc. Creatinine Clearance 88 mL/min (70-130); Calcium 7.6 mg/dL (7.8-10.44); Carbon Dioxide 23 mmol/L (23-31); Chloride 91 mmol/L (98-107); Estimated GFR 106; Glucose 93 mg/dL (83-110); Potassium 3.8 mmol/L (3.5-5.1); Sodium 123 mmol/L (136-145)
[2023-07-29] MEDS: Mometasone 200 MCG/Formoterol 5 MCG 120 PUFF INHALER INH SCH ×3 (08:00→21:56)
[2023-07-29] MEDS: Gabapentin 300 MG CAP PO SCH ×2 (08:16→21:14)
[2023-07-29] MEDS: Thiamine 100 MG TAB PO SCH (08:16)
[2023-07-29] MEDS: Multivitamin W/ Minerals 1 TAB PO SCH (08:16)
[2023-07-29] MEDS: Aspirin 81 mg Enteric Coated Tablet PO SCH (08:16)
[2023-07-29] MEDS: dilTIAZem 30 MG TAB PO SCH ×4 (08:17→21:13)
[2023-07-29] MEDS: Polyethylene Glycol 3350 17 GM Packet PO SCH (08:17)
[2023-07-29] MEDS: Apixaban 5 MG TAB PO SCH ×2 (08:17→21:14)
[2023-07-29] MEDS: Folic Acid 1 MG TAB PO SCH (08:17)
[2023-07-29] MEDS: Multivit, Therapeutic 1 TAB PO SCH (08:26)
[2023-07-29] MEDS ORDERED: Ipratropium/Albuterol 3 ML NEB NEB PRN (08:48)
[2023-07-29] MEDS ORDERED: Ipratropium/Albuterol 3 ML NEB NEB SCH (09:00)
[2023-07-29] MEDS: guaiFENesin ER 600 MG TAB PO SCH ×2 (10:46→21:14)
[2023-07-29] MEDS ORDERED: Iopamidol-370 76% 500 ML MDV (1 ML CHARGE) ONE ×2 (11:11→11:13)
[2023-07-29] MEDS ORDERED: Amoxicillin/Potassium Clav 875 MG TAB PO SCH (13:48)
[2023-07-29] MEDS ORDERED: hydrALAZINE 20 MG/ML VIAL SLOW IVP PRN (13:59)
[2023-07-29] MEDS ORDERED: methylPREDNISolone Sod Succ 40 MG VIAL IVP SCH (14:00)
[2023-07-29] MEDS: methylPREDNISolone Sod Succ 40 MG VIAL IVP SCH (21:14)
[2023-07-29] MEDS: Senokot S 8.6-50 MG TAB PO SCH (21:14)
[2023-07-29] MEDS: Atorvastatin Calcium 40 MG TAB PO SCH (21:14)
[2023-07-29] MEDS: Amoxicillin/Potassium Clav 875 MG TAB PO SCH (21:14)
[2023-07-29] MEDS: Ipratropium/Albuterol 3 ML NEB NEB SCH (21:56)
[2023-07-30 05:07] LABS: #Monocytes 0.4 thou/uL (0.11-0.59); #Neutrophils 10.5 thou/uL (1.40-6.50); %Basophils 0.2 % (0.0-1.0); %Lymphocytes 6.5 % (21.0-51.0); %Monocytes 3.1 % (0.0-10.0); %Neutrophils 88.1 % (42.0-75.0); Hemoglobin 8.8 g/dL (14.0-18.0); Mean Corpuscular HGB CONC 33.8 g/dL (32.0-36.0); Mean Corpuscular Hemoglobin 29.8 pg (27.0-31.0); Mean Corpuscular Volume 88.1 fl (78.0-98.0); Mean Platelet Volume 9.9 fL (7.4-10.4); Platelet Count 511 10x3/uL (130-400); RBC Distribution Width 16.9 % (11.5-14.5); Red Blood Cell (RBC) Count 2.95 mill/uL (4.70-6.10); White Blood Cell (WBC) Count 11.9 10x3/uL (4.8-10.8)
[2023-07-30 05:31] LABS: Anion Gap 12 mmol/L (10-20); BUN (Urea Nitrogen) 8 mg/dL (8.4-25.7); Calc. Creatinine Clearance 86 mL/min (70-130); Calcium 8.1 mg/dL (7.8-10.44); Carbon Dioxide 25 mmol/L (23-31); Chloride 96 mmol/L (98-107); Estimated GFR 105; Glucose 153 mg/dL (83-110); Potassium 4.2 mmol/L (3.5-5.1); Sodium 129 mmol/L (136-145)
[2023-07-30 05:52] LABS: Free T4 (Free Thyroxine) 0.78 ng/dL (0.70-1.48)
[2023-07-30] MEDS: Mometasone 200 MCG/Formoterol 5 MCG 120 PUFF INHALER INH SCH ×2 (07:05→19:25)
[2023-07-30] MEDS: Ipratropium/Albuterol 3 ML NEB NEB SCH ×3 (07:07→19:23)
[2023-07-30] MEDS: Polyethylene Glycol 3350 17 GM Packet PO SCH (08:02)
[2023-07-30] MEDS: Gabapentin 300 MG CAP PO SCH ×2 (08:03→20:25)
[2023-07-30] MEDS: Multivitamin W/ Minerals 1 TAB PO SCH (08:03)
[2023-07-30] MEDS: Amoxicillin/Potassium Clav 875 MG TAB PO SCH ×2 (08:03→20:25)
[2023-07-30] MEDS: dilTIAZem 30 MG TAB PO SCH ×4 (08:04→20:25)
[2023-07-30] MEDS: Thiamine 100 MG TAB PO SCH (08:04)
[2023-07-30] MEDS: Folic Acid 1 MG TAB PO SCH (08:04)
[2023-07-30] MEDS: Aspirin 81 mg Enteric Coated Tablet PO SCH (08:04)
[2023-07-30] MEDS: Senokot S 8.6-50 MG TAB PO SCH ×2 (08:04→20:26)
[2023-07-30] MEDS: Multivit, Therapeutic 1 TAB PO SCH (08:04)
[2023-07-30] MEDS: guaiFENesin ER 600 MG TAB PO SCH ×2 (08:04→20:25)
[2023-07-30] MEDS: methylPREDNISolone Sod Succ 40 MG VIAL IVP SCH (08:05)
[2023-07-30] MEDS: Apixaban 5 MG TAB PO SCH ×2 (08:05→20:25)
[2023-07-30] MEDS ORDERED: Levothyroxine Sodium 25 MCG TAB PO SCH (11:15)
[2023-07-30] MEDS: Atorvastatin Calcium 40 MG TAB PO SCH (20:25)
[2023-07-31] MEDS: Levothyroxine Sodium 25 MCG TAB PO SCH (05:20)
[2023-07-31 06:21] LABS: #Monocytes 1.8 thou/uL (0.11-0.59); #Neutrophils 19.7 thou/uL (1.40-6.50); %Basophils 0.1 % (0.0-1.0); %Lymphocytes 5.2 % (21.0-51.0); %Monocytes 7.7 % (0.0-10.0); %Neutrophils 85.3 % (42.0-75.0); Hematocrit 23.5 % (42.0-52.0); Hemoglobin 7.9 g/dL (14.0-18.0); Mean Corpuscular HGB CONC 33.6 g/dL (32.0-36.0); Mean Corpuscular Hemoglobin 29.6 pg (27.0-31.0); Mean Platelet Volume 9.9 fL (7.4-10.4); Platelet Count 498 10x3/uL (130-400); RBC Distribution Width 17.3 % (11.5-14.5); Red Blood Cell (RBC) Count 2.67 mill/uL (4.70-6.10); White Blood Cell (WBC) Count 23.1 10x3/uL (4.8-10.8)
[2023-07-31] MEDS: Mometasone 200 MCG/Formoterol 5 MCG 120 PUFF INHALER INH SCH ×2 (06:39→18:14)
[2023-07-31 06:46] LABS: Anion Gap 13 mmol/L (10-20); BUN (Urea Nitrogen) 16 mg/dL (8.4-25.7); Calc. Creatinine Clearance 81 mL/min (70-130); Carbon Dioxide 25 mmol/L (23-31); Chloride 96 mmol/L (98-107); Estimated GFR 103; Glucose 107 mg/dL (83-110); Magnesium 1.7 mg/dL (1.6-2.6); Potassium 3.6 mmol/L (3.5-5.1); Sodium 130 mmol/L (136-145)
[2023-07-31] MEDS: Aspirin 81 mg Enteric Coated Tablet PO SCH (08:30)
[2023-07-31] MEDS: Amoxicillin/Potassium Clav 875 MG TAB PO SCH ×2 (08:30→20:13)
[2023-07-31] MEDS: Multivitamin W/ Minerals 1 TAB PO SCH (08:31)
[2023-07-31] MEDS: guaiFENesin ER 600 MG TAB PO SCH ×2 (08:31→20:13)
[2023-07-31] MEDS: dilTIAZem 30 MG TAB PO SCH ×4 (08:31→20:13)
[2023-07-31] MEDS: predniSONE 20 MG TAB PO SCH (08:31)
[2023-07-31] MEDS: Folic Acid 1 MG TAB PO SCH (08:31)
[2023-07-31] MEDS: Multivit, Therapeutic 1 TAB PO SCH (08:31)
[2023-07-31] MEDS: Thiamine 100 MG TAB PO SCH (08:32)
[2023-07-31] MEDS: Polyethylene Glycol 3350 17 GM Packet PO SCH (08:32)
[2023-07-31] MEDS: Senokot S 8.6-50 MG TAB PO SCH ×2 (08:32→20:14)
[2023-07-31] MEDS: Gabapentin 300 MG CAP PO SCH ×2 (08:32→20:13)
[2023-07-31] MEDS: Apixaban 5 MG TAB PO SCH ×2 (08:32→20:13)
[2023-07-31] MEDS: Atorvastatin Calcium 40 MG TAB PO SCH (20:13)
[2023-08-01] MEDS: Levothyroxine Sodium 25 MCG TAB PO SCH (05:19)
[2023-08-01] MEDS: Mometasone 200 MCG/Formoterol 5 MCG 120 PUFF INHALER INH SCH ×2 (06:21→19:40)
[2023-08-01 07:07] LABS: #Monocytes 1.5 thou/uL (0.11-0.59); #Neutrophils 12.9 thou/uL (1.40-6.50); %Basophils 0.2 % (0.0-1.0); %Eosinophils 0.2 % (0.0-10.0); %Lymphocytes 8.1 % (21.0-51.0); %Monocytes 9.2 % (0.0-10.0); %Neutrophils 80.9 % (42.0-75.0); Hemoglobin 8.3 g/dL (14.0-18.0); Mean Corpuscular HGB CONC 33.2 g/dL (32.0-36.0); Mean Corpuscular Hemoglobin 29.9 pg (27.0-31.0); Mean Corpuscular Volume 89.9 fl (78.0-98.0); Platelet Count 500 10x3/uL (130-400); RBC Distribution Width 17.8 % (11.5-14.5); Red Blood Cell (RBC) Count 2.78 mill/uL (4.70-6.10); White Blood Cell (WBC) Count 15.9 10x3/uL (4.8-10.8)
[2023-08-01 07:33] LABS: Anion Gap 11 mmol/L (10-20); BUN (Urea Nitrogen) 19 mg/dL (8.4-25.7); Calc. Creatinine Clearance 88 mL/min (70-130); Calcium 8.1 mg/dL (7.8-10.44); Carbon Dioxide 26 mmol/L (23-31); Chloride 100 mmol/L (98-107); Estimated GFR 106; Glucose 82 mg/dL (83-110); Magnesium 2.6 mg/dL (1.6-2.6); Potassium 4.1 mmol/L (3.5-5.1); Sodium 133 mmol/L (136-145)
[2023-08-01] MEDS: Thiamine 100 MG TAB PO SCH (08:41)
[2023-08-01] MEDS: predniSONE 20 MG TAB PO SCH (08:41)
[2023-08-01] MEDS: Amoxicillin/Potassium Clav 875 MG TAB PO SCH ×2 (08:41→20:07)
[2023-08-01] MEDS: guaiFENesin ER 600 MG TAB PO SCH ×2 (08:42→20:07)
[2023-08-01] MEDS: Gabapentin 300 MG CAP PO SCH ×2 (08:42→20:09)
[2023-08-01] MEDS: Folic Acid 1 MG TAB PO SCH (08:42)
[2023-08-01] MEDS: Multivitamin W/ Minerals 1 TAB PO SCH (08:42)
[2023-08-01] MEDS: Aspirin 81 mg Enteric Coated Tablet PO SCH (08:42)
[2023-08-01] MEDS: Apixaban 5 MG TAB PO SCH ×2 (08:42→20:07)
[2023-08-01] MEDS: dilTIAZem 30 MG TAB PO SCH ×4 (08:42→20:11)
[2023-08-01] MEDS: Polyethylene Glycol 3350 17 GM Packet PO SCH (08:45)
[2023-08-01] MEDS: Senokot S 8.6-50 MG TAB PO SCH ×2 (08:45→20:09)
[2023-08-01] MEDS: Multivit, Therapeutic 1 TAB PO SCH (08:45)
[2023-08-01] MEDS ORDERED: Nystatin Powder 15 GM BOT TOP PRN (11:25)
[2023-08-01] MEDS: Atorvastatin Calcium 40 MG TAB PO SCH (20:07)
[2023-08-02] MEDS: Levothyroxine Sodium 25 MCG TAB PO SCH (05:11)
[2023-08-02] MEDS: Mometasone 200 MCG/Formoterol 5 MCG 120 PUFF INHALER INH SCH (06:25)
[2023-08-02 06:54] LABS: #Eosinphils 0.1 thou/uL (0.0-0.7); #Monocytes 2.1 thou/uL (0.11-0.59); #Neutrophils 12.4 thou/uL (1.40-6.50); %Basophils 0.1 % (0.0-1.0); %Eosinophils 0.7 % (0.0-10.0); %Lymphocytes 7.6 % (21.0-51.0); %Monocytes 12.8 % (0.0-10.0); %Neutrophils 76.7 % (42.0-75.0); Hematocrit 25.8 % (42.0-52.0); Hemoglobin 8.4 g/dL (14.0-18.0); Mean Corpuscular HGB CONC 32.6 g/dL (32.0-36.0); Mean Corpuscular Hemoglobin 30.2 pg (27.0-31.0); Mean Platelet Volume 9.8 fL (7.4-10.4); Platelet Count 481 10x3/uL (130-400); RBC Distribution Width 18.3 % (11.5-14.5); Red Blood Cell (RBC) Count 2.78 mill/uL (4.70-6.10); White Blood Cell (WBC) Count 16.2 10x3/uL (4.8-10.8)
[2023-08-02 07:08] LABS: Mean Corpuscular Volume 92.8 fl (78.0-98.0)
[2023-08-02 07:16] LABS: Anion Gap 9 mmol/L (10-20); BUN (Urea Nitrogen) 22 mg/dL (8.4-25.7); Calc. Creatinine Clearance 78 mL/min (70-130); Calcium 8.2 mg/dL (7.8-10.44); Carbon Dioxide 27 mmol/L (23-31); Chloride 102 mmol/L (98-107); Estimated GFR 102; Glucose 90 mg/dL (83-110); Magnesium 1.7 mg/dL (1.6-2.6); Potassium 3.8 mmol/L (3.5-5.1); Sodium 134 mmol/L (136-145)
[2023-08-02 08:23] VITALS: BP 123/71; TEMP 97.3
[2023-08-02] MEDS: Multivit, Therapeutic 1 TAB PO SCH (08:26)
[2023-08-02] MEDS: Apixaban 5 MG TAB PO SCH (08:28)
[2023-08-02] MEDS: dilTIAZem 30 MG TAB PO SCH ×2 (08:28→11:41)
[2023-08-02] MEDS: Amoxicillin/Potassium Clav 875 MG TAB PO SCH (08:28)
[2023-08-02] MEDS: Folic Acid 1 MG TAB PO SCH (08:29)
[2023-08-02] MEDS: Thiamine 100 MG TAB PO SCH (08:29)
[2023-08-02] MEDS: predniSONE 20 MG TAB PO SCH (08:29)
[2023-08-02] MEDS: Gabapentin 300 MG CAP PO SCH (08:29)
[2023-08-02] MEDS: Multivitamin W/ Minerals 1 TAB PO SCH (08:29)
[2023-08-02] MEDS: Aspirin 81 mg Enteric Coated Tablet PO SCH (08:29)
[2023-08-02] MEDS: guaiFENesin ER 600 MG TAB PO SCH (08:29)
[2023-08-02] MEDS: Senokot S 8.6-50 MG TAB PO SCH (08:30)
[2023-08-02] MEDS: Polyethylene Glycol 3350 17 GM Packet PO SCH (08:30)
== END 2023-08-02 12:42 | DRG 853 ==
LOC: ERS 11:19 → ERHOLD 13:37 → 2SW 18:04 → OBSVTOIN 07-15 11:54 → T4-A 07-30 17:21
PROVIDERS: ADMIT Internal Medicine; ATTEND Internal Medicine
PROC: 3E03329 Introduction of Other Anti-infective into Peripheral Vein, Percutaneous Approach (ICD-10-PCS; 2023-07-14)
PROC: 0HBDXZX Excision of Right Lower Arm Skin, External Approach, Diagnostic (ICD-10-PCS; principal; 2023-07-15)
PROC: 041 Lower Arteries, Bypass (ICD-10-PCS; 2023-07-19)
PROC: 041L09L Bypass Left Femoral Artery to Popliteal Artery with Autologous Venous Tissue, Open Approach (ICD-10-PCS; 2023-07-21)
PROC: 3E033XZ Introduction of Vasopressor into Peripheral Vein, Percutaneous Approach (ICD-10-PCS; 2023-07-21)
DX: A41.9 Sepsis, unspecified organism (principal); J69.0 Pneumonitis due to inhalation of food and vomit; E44.0 Moderate protein-calorie malnutrition; L03.116 Cellulitis of left lower limb; E22.2 Syndrome of inappropriate secretion of antidiuretic hormone; I48.91 Unspecified atrial fibrillation; J44.9 Chronic obstructive pulmonary disease, unspecified; Z79.82 Long term (current) use of aspirin; Z79.899 Other long term (current) drug therapy; Z86.73 Personal history of transient ischemic attack (TIA), and cerebral infarction without residual deficits; Z98.49 Cataract extraction status, unspecified eye; Z66 Do not resuscitate; Z82.49 Family history of ischemic heart disease and other diseases of the circulatory system; F17.210 Nicotine dependence, cigarettes, uncomplicated; I73.9 Peripheral vascular disease, unspecified; I10 Essential (primary) hypertension; E78.00 Pure hypercholesterolemia, unspecified; C43.61 Malignant melanoma of right upper limb, including shoulder; K59.00 Constipation, unspecified; E03.9 Hypothyroidism, unspecified; B36.8 Other specified superficial mycoses
CPT/HCPCS: 36415; 36416; 71260; 74177; 75635; 80048; 80053; 80061; 80202; 81001; 82533; 83605; 83735; 83930; 84439; 84443; 84481; 85025; 85610; 85730; 86850; 86900; 86901; 87040; 87086; 88305; 88341; 88342; 93005; 93306; 93923; 94640; 94760; 96365; 96367; 96372; 96376; 97139; G0378; J0171; J0360; J0690; J0692; J1100; J1642; J1644; J1650; J2001; J2250; J2272; J2405; J2704; J2720; J2920; J3010; J3370; J3370-JW; J3490; J7050; J7120; J7512; J7620; Q9967; S0020

== ENCOUNTER 2023-08-20 12:22 | Inpatient (IN) | payer OTHER ==
[2023-08-20 12:54] LABS: #Basophils 0.1 thou/uL (0.0-0.2); #Eosinphils 0.1 thou/uL (0.0-0.7); #Monocytes 1.3 thou/uL (0.11-0.59); #Neutrophils 18.6 thou/uL (1.40-6.50); %Basophils 0.2 % (0.0-1.0); %Eosinophils 0.4 % (0.0-10.0); %Lymphocytes 4.9 % (21.0-51.0); %Neutrophils 87.7 % (42.0-75.0); Hematocrit 26.3 % (42.0-52.0); Hemoglobin 8.5 g/dL (14.0-18.0); Mean Corpuscular HGB CONC 32.3 g/dL (32.0-36.0); Mean Corpuscular Volume 92.9 fl (78.0-98.0); Mean Platelet Volume 9.4 fL (7.4-10.4); Platelet Count 573 10x3/uL (130-400); RBC Distribution Width 18.2 % (11.5-14.5); Red Blood Cell (RBC) Count 2.83 mill/uL (4.70-6.10); White Blood Cell (WBC) Count 21.2 10x3/uL (4.8-10.8)
[2023-08-20 13:18] LABS: ALT (SGPT) 14 U/L (8-55); AST (SGOT) 15 U/L (5-34); Alkaline Phosphatase 84 U/L (40-110); Anion Gap 17 mmol/L (10-20); BUN (Urea Nitrogen) 6 mg/dL (8.4-25.7); Bilirubin, Total 0.4 mg/dL (0.2-1.2); Calc. Creatinine Clearance 0 mL/min (70-130); Calcium 8.6 mg/dL (7.8-10.44); Carbon Dioxide 21 mmol/L (23-31); Chloride 95 mmol/L (98-107); Estimated GFR 103; Globulin 3.2 g/dL (2.4-3.5); Glucose 104 mg/dL (83-110); Protein, Total 6.2 g/dL (5.8-8.1); Sodium 129 mmol/L (136-145)
[2023-08-20 13:20] LABS: Troponin I 0.018 ng/mL (< 0.028)
[2023-08-20] MEDS ORDERED: Cefepime 2 GM VIAL ONE (14:28)
[2023-08-20] MEDS ORDERED: Sodium Chloride 0.9% 100 ML ONE (14:28)
[2023-08-20] MEDS ORDERED: Bisacodyl 5 MG TAB PO PRN (14:54)
[2023-08-20] MEDS ORDERED: Acetaminophen 325 MG TAB PO PRN (14:54)
[2023-08-20] MEDS ORDERED: Bisacodyl 10 MG SUPP PR PRN (14:54)
[2023-08-20] MEDS ORDERED: Senokot S 8.6-50 MG TAB PO PRN (14:54)
[2023-08-20] MEDS ORDERED: Vancomycin 1 GM in Premix 1 BAG IVPB SCH (16:45)
[2023-08-20] MEDS ORDERED: FLU VACC QS2023(65UP)/MF59C/PF 60 MCG/0.5 ML SYRINGE IM ONE (17:00)
[2023-08-20] MEDS: dilTIAZem 30 MG TAB PO SCH ×2 (17:41→19:58)
[2023-08-20] MEDS: Sodium Chloride 0.9% 1,000 ML IV SCH ×2 (17:41→20:06)
[2023-08-20] MEDS: Apixaban 5 MG TAB PO SCH (19:57)
[2023-08-20] MEDS: Famotidine 20 MG TAB PO SCH (19:58)
[2023-08-20] MEDS: Atorvastatin Calcium 40 MG TAB PO SCH (19:58)
[2023-08-20] MEDS: Terbinafine 1% Cream 15 GM Tube TOP SCH (19:59)
[2023-08-20] MEDS: Nystatin Powder 15 GM BOT TOP SCH (19:59)
[2023-08-21] MEDS: Cefepime 2 GM in Sodium Chloride 0.9% 100 ML IVPB SCH ×2 (02:23→13:01)
[2023-08-21 05:30] LABS: #Eosinphils 0.4 thou/uL (0.0-0.7); #Neutrophils 9.3 thou/uL (1.40-6.50); %Basophils 0.3 % (0.0-1.0); %Eosinophils 3.1 % (0.0-10.0); %Lymphocytes 7.7 % (21.0-51.0); %Monocytes 8.3 % (0.0-10.0); %Neutrophils 79.7 % (42.0-75.0); Hematocrit 22.6 % (42.0-52.0); Hemoglobin 7.3 g/dL (14.0-18.0); Mean Corpuscular HGB CONC 32.3 g/dL (32.0-36.0); Mean Corpuscular Hemoglobin 29.3 pg (27.0-31.0); Mean Corpuscular Volume 90.8 fl (78.0-98.0); Mean Platelet Volume 9.6 fL (7.4-10.4); Platelet Count 467 10x3/uL (130-400); RBC Distribution Width 18.6 % (11.5-14.5); Red Blood Cell (RBC) Count 2.49 mill/uL (4.70-6.10); White Blood Cell (WBC) Count 11.7 10x3/uL (4.8-10.8)
[2023-08-21] MEDS: Levothyroxine Sodium 25 MCG TAB PO SCH (05:45)
[2023-08-21] MEDS: Vancomycin HCl 750 MG in Sodium Chloride 0.9% 250 ML 250 ML IVPB SCH ×2 (05:45→17:11)
[2023-08-21 05:58] LABS: Phosphorus 2.4 mg/dL (2.3-4.7)
[2023-08-21 06:04] LABS: Anion Gap 10 mmol/L (10-20); BUN (Urea Nitrogen) 6 mg/dL (8.4-25.7); Calc. Creatinine Clearance 87 mL/min (70-130); Calcium 7.5 mg/dL (7.8-10.44); Carbon Dioxide 23 mmol/L (23-31); Chloride 100 mmol/L (98-107); Estimated GFR 104; Glucose 101 mg/dL (83-110); Magnesium 1.5 mg/dL (1.6-2.6); Potassium 3.6 mmol/L (3.5-5.1); Sodium 129 mmol/L (136-145)
[2023-08-21] MEDS: dilTIAZem 30 MG TAB PO SCH ×4 (06:50→21:05)
[2023-08-21] MEDS ORDERED: Enoxaparin 40 MG (0.4 mL) SYRINGE SC SCH (09:00)
[2023-08-21] MEDS: Famotidine 20 MG TAB PO SCH ×2 (09:50→21:06)
[2023-08-21] MEDS: Nystatin Powder 15 GM BOT TOP SCH ×2 (09:50→21:07)
[2023-08-21] MEDS: Apixaban 5 MG TAB PO SCH ×2 (09:50→21:05)
[2023-08-21] MEDS: Terbinafine 1% Cream 15 GM Tube TOP SCH ×2 (09:51→21:08)
[2023-08-21] MEDS ORDERED: Magnesium 2 GM/50 ML(in water) 2 GM in Premix 1 BAG IVPB SCH (12:00)
[2023-08-21] MEDS: Atorvastatin Calcium 40 MG TAB PO SCH (21:06)
[2023-08-21] MEDS: Sodium Chloride 0.9% 1,000 ML IV SCH (22:23)
[2023-08-22] MEDS: Cefepime 2 GM in Sodium Chloride 0.9% 100 ML IVPB SCH ×3 (02:21→17:11)
[2023-08-22 04:32] LABS: #Eosinphils 1.2 thou/uL (0.0-0.7); #Monocytes 1.1 thou/uL (0.11-0.59); #Neutrophils 7.8 thou/uL (1.40-6.50); %Basophils 0.3 % (0.0-1.0); %Eosinophils 10.3 % (0.0-10.0); %Lymphocytes 10.2 % (21.0-51.0); %Monocytes 9.7 % (0.0-10.0); %Neutrophils 68.7 % (42.0-75.0); Hematocrit 23.5 % (42.0-52.0); Hemoglobin 7.7 g/dL (14.0-18.0); Mean Corpuscular HGB CONC 32.8 g/dL (32.0-36.0); Mean Corpuscular Hemoglobin 29.7 pg (27.0-31.0); Mean Corpuscular Volume 90.7 fl (78.0-98.0); Mean Platelet Volume 9.6 fL (7.4-10.4); Platelet Count 477 10x3/uL (130-400); RBC Distribution Width 18.7 % (11.5-14.5); Red Blood Cell (RBC) Count 2.59 mill/uL (4.70-6.10); White Blood Cell (WBC) Count 11.3 10x3/uL (4.8-10.8)
[2023-08-22 04:57] LABS: Anion Gap 9 mmol/L (10-20); BUN (Urea Nitrogen) 7 mg/dL (8.4-25.7); Calc. Creatinine Clearance 96 mL/min (70-130); Calcium 7.5 mg/dL (7.8-10.44); Carbon Dioxide 25 mmol/L (23-31); Chloride 102 mmol/L (98-107); Estimated GFR 108; Glucose 106 mg/dL (83-110); Magnesium 1.7 mg/dL (1.6-2.6); Potassium 3.7 mmol/L (3.5-5.1); Sodium 132 mmol/L (136-145)
[2023-08-22 05:03] LABS: Iron 12 ug/dL (65-175); Phosphorus 2.4 mg/dL (2.3-4.7)
[2023-08-22 06:31] LABS: Vancomycin, Trough 6.3 ug/mL
[2023-08-22] MEDS: Vancomycin HCl 750 MG in Sodium Chloride 0.9% 250 ML 250 ML IVPB SCH (06:36)
[2023-08-22] MEDS: Levothyroxine Sodium 25 MCG TAB PO SCH (06:37)
[2023-08-22 07:40] LABS: Ferritin 123.84 ng/mL (22-322)
[2023-08-22] MEDS ORDERED: Vancomycin HCl 500 MG in Sodium Chloride 0.9% 100 ML IVPB SCH (08:00)
[2023-08-22] MEDS: Multivitamin W/ Minerals 1 TAB PO SCH (08:23)
[2023-08-22] MEDS: dilTIAZem 30 MG TAB PO SCH ×4 (08:23→21:49)
[2023-08-22] MEDS: Famotidine 20 MG TAB PO SCH ×2 (08:23→21:49)
[2023-08-22] MEDS: Nystatin Powder 15 GM BOT TOP SCH ×2 (08:24→21:50)
[2023-08-22] MEDS: Terbinafine 1% Cream 15 GM Tube TOP SCH ×2 (08:25→21:50)
[2023-08-22] MEDS: Apixaban 5 MG TAB PO SCH ×2 (08:50→21:49)
[2023-08-22] MEDS: Vancomycin (BATCH) 1.25 GM in Premix 1 BAG IVPB SCH (18:06)
[2023-08-22] MEDS: Atorvastatin Calcium 40 MG TAB PO SCH (21:49)
[2023-08-23 03:21] LABS: Campy jejuni + coli by PCR Negative (Negative); STEC Shiga Toxin 1+2 Negative (Negative); Salmonella spp. by PCR Negative (Negative); Shigella spp + EIEC by PCR Negative (Negative)
[2023-08-23] MEDS: Cefepime 2 GM in Sodium Chloride 0.9% 100 ML IVPB SCH ×2 (04:31→17:31)
[2023-08-23 05:12] LABS: #Eosinphils 1.6 thou/uL (0.0-0.7); #Neutrophils 8.7 thou/uL (1.40-6.50); %Basophils 0.2 % (0.0-1.0); %Eosinophils 12.7 % (0.0-10.0); %Lymphocytes 8.2 % (21.0-51.0); %Monocytes 8.1 % (0.0-10.0); %Neutrophils 69.9 % (42.0-75.0); Hematocrit 22.8 % (42.0-52.0); Hemoglobin 7.3 g/dL (14.0-18.0); Mean Corpuscular Hemoglobin 29.6 pg (27.0-31.0); Mean Corpuscular Volume 92.3 fl (78.0-98.0); Mean Platelet Volume 9.3 fL (7.4-10.4); Platelet Count 412 10x3/uL (130-400); RBC Distribution Width 18.6 % (11.5-14.5); Red Blood Cell (RBC) Count 2.47 mill/uL (4.70-6.10); White Blood Cell (WBC) Count 12.4 10x3/uL (4.8-10.8)
[2023-08-23 05:33] LABS: Phosphorus 2.5 mg/dL (2.3-4.7)
[2023-08-23 05:41] LABS: Anion Gap 8 mmol/L (10-20); BUN (Urea Nitrogen) 7 mg/dL (8.4-25.7); Calc. Creatinine Clearance 96 mL/min (70-130); Carbon Dioxide 24 mmol/L (23-31); Chloride 103 mmol/L (98-107); Estimated GFR 108; Glucose 103 mg/dL (83-110); Magnesium 1.6 mg/dL (1.6-2.6); Potassium 3.6 mmol/L (3.5-5.1); Sodium 131 mmol/L (136-145)
[2023-08-23 05:48] LABS: Calcium 7.6 mg/dL (7.8-10.44)
[2023-08-23] MEDS: Vancomycin (BATCH) 1.25 GM in Premix 1 BAG IVPB SCH ×2 (06:06→18:40)
[2023-08-23] MEDS: Levothyroxine Sodium 25 MCG TAB PO SCH (06:06)
[2023-08-23] MEDS: dilTIAZem 30 MG TAB PO SCH ×4 (06:06→21:29)
[2023-08-23] MEDS: Sodium Chloride 0.9% 1,000 ML IV SCH (06:26)
[2023-08-23] MEDS: Famotidine 20 MG TAB PO SCH ×2 (07:51→21:29)
[2023-08-23] MEDS: Nystatin Powder 15 GM BOT TOP SCH ×2 (07:51→21:30)
[2023-08-23] MEDS: Apixaban 5 MG TAB PO SCH ×2 (07:51→21:29)
[2023-08-23] MEDS: Multivitamin W/ Minerals 1 TAB PO SCH (07:51)
[2023-08-23] MEDS: Terbinafine 1% Cream 15 GM Tube TOP SCH ×2 (07:52→21:30)
[2023-08-23 18:14] LABS: Vancomycin, Trough 13.4 ug/mL
[2023-08-23] MEDS: Albuterol 2.5 MG (3 mL) NEB NEB PRN (21:25)
[2023-08-23] MEDS: Atorvastatin Calcium 40 MG TAB PO SCH (21:29)
[2023-08-24] MEDS: Levothyroxine Sodium 25 MCG TAB PO SCH (05:35)
[2023-08-24] MEDS: Cefepime 2 GM in Sodium Chloride 0.9% 100 ML IVPB SCH ×2 (05:35→17:22)
[2023-08-24] MEDS: Sodium Chloride 0.9% 1,000 ML IV SCH (05:36)
[2023-08-24 05:58] LABS: #Basophils 0.1 thou/uL (0.0-0.2); #Eosinphils 1.6 thou/uL (0.0-0.7); #Monocytes 1.3 thou/uL (0.11-0.59); #Neutrophils 14.5 thou/uL (1.40-6.50); %Basophils 0.4 % (0.0-1.0); %Eosinophils 8.4 % (0.0-10.0); %Lymphocytes 5.7 % (21.0-51.0); %Monocytes 7.1 % (0.0-10.0); %Neutrophils 77.6 % (42.0-75.0); Hematocrit 28.2 % (42.0-52.0); Hemoglobin 9.3 g/dL (14.0-18.0); Mean Corpuscular Hemoglobin 29.7 pg (27.0-31.0); Mean Corpuscular Volume 90.1 fl (78.0-98.0); Mean Platelet Volume 9.5 fL (7.4-10.4); Platelet Count 449 10x3/uL (130-400); Red Blood Cell (RBC) Count 3.13 mill/uL (4.70-6.10); White Blood Cell (WBC) Count 18.7 10x3/uL (4.8-10.8)
[2023-08-24] MEDS: Vancomycin (BATCH) 1.25 GM in Premix 1 BAG IVPB SCH ×2 (06:38→18:29)
[2023-08-24 06:58] LABS: Anion Gap 9 mmol/L (10-20); BUN (Urea Nitrogen) 8 mg/dL (8.4-25.7); Calc. Creatinine Clearance 103 mL/min (70-130); Calcium 7.8 mg/dL (7.8-10.44); Carbon Dioxide 26 mmol/L (23-31); Chloride 99 mmol/L (98-107); Estimated GFR 110; Glucose 103 mg/dL (83-110); Magnesium 1.4 mg/dL (1.6-2.6); Potassium 3.8 mmol/L (3.5-5.1); Sodium 130 mmol/L (136-145)
[2023-08-24 08:28] LABS: Phosphorus 2.7 mg/dL (2.3-4.7)
[2023-08-24] MEDS: Apixaban 5 MG TAB PO SCH ×2 (08:38→20:18)
[2023-08-24] MEDS: Famotidine 20 MG TAB PO SCH ×2 (08:38→20:18)
[2023-08-24] MEDS: Multivitamin W/ Minerals 1 TAB PO SCH (08:38)
[2023-08-24] MEDS: dilTIAZem 30 MG TAB PO SCH ×4 (13:09→20:19)
[2023-08-24] MEDS: Nystatin Powder 15 GM BOT TOP SCH ×2 (13:12→20:18)
[2023-08-24] MEDS: Terbinafine 1% Cream 15 GM Tube TOP SCH ×2 (13:13→23:05)
[2023-08-24] MEDS: Atorvastatin Calcium 40 MG TAB PO SCH (20:18)
[2023-08-24] MEDS ORDERED: Ipratropium/Albuterol 3 ML NEB EZPAP PRN (21:57)
[2023-08-24] MEDS ORDERED: guaiFENesin/DM ER PO SCH (22:00)
[2023-08-24] MEDS ORDERED: methylPREDNISolone Sod Succ/PF 125 MG/2 ML VIAL IVP SCH (22:00)
[2023-08-24] MEDS: Albuterol 2.5 MG (3 mL) NEB NEB PRN (22:02)
[2023-08-24] MEDS: Ipratropium/Albuterol 3 ML NEB NEB SCH (22:03)
[2023-08-24 22:12] LABS: #Basophils 0.1 thou/uL (0.0-0.2); #Eosinphils 1.5 thou/uL (0.0-0.7); #Monocytes 1.4 thou/uL (0.11-0.59); #Neutrophils 8.3 thou/uL (1.40-6.50); %Basophils 0.5 % (0.0-1.0); %Eosinophils 11.9 % (0.0-10.0); %Lymphocytes 11.4 % (21.0-51.0); %Monocytes 10.5 % (0.0-10.0); %Neutrophils 64.2 % (42.0-75.0); Hematocrit 28.9 % (42.0-52.0); Hemoglobin 9.4 g/dL (14.0-18.0); Mean Corpuscular HGB CONC 32.5 g/dL (32.0-36.0); Mean Corpuscular Hemoglobin 29.8 pg (27.0-31.0); Mean Corpuscular Volume 91.7 fl (78.0-98.0); Mean Platelet Volume 9.2 fL (7.4-10.4); Platelet Count 425 10x3/uL (130-400); RBC Distribution Width 17.9 % (11.5-14.5); Red Blood Cell (RBC) Count 3.15 mill/uL (4.70-6.10); White Blood Cell (WBC) Count 12.9 10x3/uL (4.8-10.8)
[2023-08-24 22:13] LABS: Actual Bicarbonate (HCO3v) 27.7 mEq/L (22-28); Base Excess 3.2 mEq/L (-2.0 to +3.0); Calcium, Ionized (venous) 1.07 mmol/L (1.16-1.32); Chloride (VBG) 97 mmol/L (98-106); Hematocrit-VBG 31 % (42.0-52.0); Hemoglobin (Hb) 10.4 g/dL (12.6-17.4); Potassium (VBG) 4.08 mmol/L (3.70-5.30); Sodium 129 mmol/L (133-146); pH (venous) 7.439 (7.32-7.43)
[2023-08-24] MEDS ORDERED: Electrolyte Replacement Protocol 1 EACH FS SCH (22:15)
[2023-08-24] MEDS ORDERED: Magnesium 2 GM/50 ML(in water) 2 GM in Premix 1 BAG IVPB SCH (22:30)
[2023-08-24 22:41] LABS: ALT (SGPT) 10 U/L (8-55); AST (SGOT) 12 U/L (5-34); Albumin 2.6 g/dL (3.4-4.8); Alkaline Phosphatase 68 U/L (40-110); Anion Gap 10 mmol/L (10-20); BUN (Urea Nitrogen) 12 mg/dL (8.4-25.7); Bilirubin, Total 0.3 mg/dL (0.2-1.2); Calc. Creatinine Clearance 75 mL/min (70-130); Calcium 7.7 mg/dL (7.8-10.44); Carbon Dioxide 26 mmol/L (23-31); Chloride 99 mmol/L (98-107); Estimated GFR 100; Globulin 2.2 g/dL (2.4-3.5); Glucose 107 mg/dL (83-110); Magnesium 1.6 mg/dL (1.6-2.6); Potassium 4.4 mmol/L (3.5-5.1); Protein, Total 4.8 g/dL (5.8-8.1); Sodium 131 mmol/L (136-145)
[2023-08-25] MEDS: Sodium Chloride 0.9% 1,000 ML IV SCH ×2 (01:23→17:30)
[2023-08-25] MEDS: Ipratropium/Albuterol 3 ML NEB NEB SCH ×6 (02:41→22:56)
[2023-08-25] MEDS: Cefepime 2 GM in Sodium Chloride 0.9% 100 ML IVPB SCH ×2 (05:18→16:21)
[2023-08-25] MEDS: Levothyroxine Sodium 25 MCG TAB PO SCH (05:20)
[2023-08-25] MEDS ORDERED: methylPREDNISolone Sod Succ 40 MG VIAL IVP SCH (06:00)
[2023-08-25 06:20] LABS: #Monocytes 0.1 thou/uL (0.11-0.59); #Neutrophils 9.1 thou/uL (1.40-6.50); %Basophils 0.1 % (0.0-1.0); %Lymphocytes 3.7 % (21.0-51.0); %Monocytes 0.9 % (0.0-10.0); %Neutrophils 94.5 % (42.0-75.0); Hematocrit 28.3 % (42.0-52.0); Hemoglobin 9.2 g/dL (14.0-18.0); Mean Corpuscular HGB CONC 32.5 g/dL (32.0-36.0); Mean Corpuscular Volume 89.3 fl (78.0-98.0); Mean Platelet Volume 9.7 fL (7.4-10.4); Platelet Count 420 10x3/uL (130-400); RBC Distribution Width 17.4 % (11.5-14.5); Red Blood Cell (RBC) Count 3.17 mill/uL (4.70-6.10); White Blood Cell (WBC) Count 9.6 10x3/uL (4.8-10.8)
[2023-08-25 06:52] LABS: Anion Gap 12 mmol/L (10-20); BUN (Urea Nitrogen) 11 mg/dL (8.4-25.7); Calc. Creatinine Clearance 96 mL/min (70-130); Carbon Dioxide 22 mmol/L (23-31); Chloride 99 mmol/L (98-107); Estimated GFR 108; Glucose 179 mg/dL (83-110); Magnesium 1.9 mg/dL (1.6-2.6); Potassium 4.1 mmol/L (3.5-5.1); Sodium 129 mmol/L (136-145)
[2023-08-25] MEDS: Vancomycin (BATCH) 1.25 GM in Premix 1 BAG IVPB SCH ×2 (07:56→17:31)
[2023-08-25] MEDS: methylPREDNISolone Sod Succ 40 MG VIAL IVP SCH ×2 (08:04→21:36)
[2023-08-25] MEDS: Famotidine 20 MG TAB PO SCH ×2 (08:04→21:35)
[2023-08-25] MEDS: Apixaban 5 MG TAB PO SCH ×2 (08:04→21:34)
[2023-08-25] MEDS: guaiFENesin/DM ER PO SCH ×2 (08:05→21:34)
[2023-08-25] MEDS: Multivitamin W/ Minerals 1 TAB PO SCH (08:05)
[2023-08-25] MEDS: Nystatin Powder 15 GM BOT TOP SCH ×2 (08:14→21:36)
[2023-08-25] MEDS: dilTIAZem 30 MG TAB PO SCH ×4 (08:14→21:35)
[2023-08-25] MEDS: Terbinafine 1% Cream 15 GM Tube TOP SCH ×2 (08:14→21:36)
[2023-08-25] MEDS ORDERED: Magnesium 2 GM/50 ML(in water) 2 GM in Premix 1 BAG IVPB SCH (08:30)
[2023-08-25] MEDS: Atorvastatin Calcium 40 MG TAB PO SCH (21:35)
[2023-08-26] MEDS: Ipratropium/Albuterol 3 ML NEB NEB SCH ×6 (02:26→22:54)
[2023-08-26] MEDS: Sodium Chloride 0.9% 1,000 ML IV SCH (04:00)
[2023-08-26 05:06] LABS: #Monocytes 0.5 thou/uL (0.11-0.59); #Neutrophils 16.2 thou/uL (1.40-6.50); %Basophils 0.1 % (0.0-1.0); %Lymphocytes 3.9 % (21.0-51.0); %Monocytes 2.9 % (0.0-10.0); %Neutrophils 92.4 % (42.0-75.0); Hematocrit 26.9 % (42.0-52.0); Hemoglobin 8.8 g/dL (14.0-18.0); Mean Corpuscular HGB CONC 32.7 g/dL (32.0-36.0); Mean Corpuscular Hemoglobin 29.6 pg (27.0-31.0); Mean Corpuscular Volume 90.6 fl (78.0-98.0); Mean Platelet Volume 9.8 fL (7.4-10.4); Platelet Count 373 10x3/uL (130-400); RBC Distribution Width 17.9 % (11.5-14.5); Red Blood Cell (RBC) Count 2.97 mill/uL (4.70-6.10); White Blood Cell (WBC) Count 17.6 10x3/uL (4.8-10.8)
[2023-08-26] MEDS: Cefepime 2 GM in Sodium Chloride 0.9% 100 ML IVPB SCH ×2 (05:24→17:11)
[2023-08-26] MEDS: Levothyroxine Sodium 25 MCG TAB PO SCH (05:25)
[2023-08-26 05:32] LABS: Anion Gap 10 mmol/L (10-20); BUN (Urea Nitrogen) 17 mg/dL (8.4-25.7); Calc. Creatinine Clearance 94 mL/min (70-130); Calcium 7.9 mg/dL (7.8-10.44); Carbon Dioxide 23 mmol/L (23-31); Chloride 101 mmol/L (98-107); Estimated GFR 107; Glucose 164 mg/dL (83-110); Potassium 3.9 mmol/L (3.5-5.1); Sodium 130 mmol/L (136-145)
[2023-08-26] MEDS: Vancomycin (BATCH) 1.25 GM in Premix 1 BAG IVPB SCH ×2 (05:51→18:27)
[2023-08-26] MEDS: guaiFENesin/DM ER PO SCH ×2 (08:48→20:42)
[2023-08-26] MEDS: Famotidine 20 MG TAB PO SCH ×2 (08:48→20:42)
[2023-08-26] MEDS: Multivitamin W/ Minerals 1 TAB PO SCH (08:48)
[2023-08-26] MEDS: Apixaban 5 MG TAB PO SCH ×2 (08:48→20:42)
[2023-08-26] MEDS: methylPREDNISolone Sod Succ 40 MG VIAL IVP SCH ×2 (08:49→20:42)
[2023-08-26] MEDS: dilTIAZem 30 MG TAB PO SCH ×4 (08:51→20:42)
[2023-08-26] MEDS: Terbinafine 1% Cream 15 GM Tube TOP SCH ×2 (08:53→20:43)
[2023-08-26] MEDS: Nystatin Powder 15 GM BOT TOP SCH ×2 (08:53→20:43)
[2023-08-26] MEDS: Atorvastatin Calcium 40 MG TAB PO SCH (20:42)
[2023-08-27] MEDS: Ipratropium/Albuterol 3 ML NEB NEB SCH ×6 (02:33→22:34)
[2023-08-27] MEDS: Sodium Chloride 0.9% 1,000 ML IV SCH (02:34)
[2023-08-27] MEDS: Cefepime 2 GM in Sodium Chloride 0.9% 100 ML IVPB SCH ×2 (05:19→16:52)
[2023-08-27] MEDS: Levothyroxine Sodium 25 MCG TAB PO SCH (05:20)
[2023-08-27] MEDS: Vancomycin (BATCH) 1.25 GM in Premix 1 BAG IVPB SCH ×2 (05:59→18:36)
[2023-08-27 09:02] LABS: #Neutrophils 12.7 thou/uL (1.40-6.50); %Basophils 0.1 % (0.0-1.0); %Lymphocytes 6.5 % (21.0-51.0); %Monocytes 6.8 % (0.0-10.0); %Neutrophils 85.5 % (42.0-75.0); Hematocrit 25.8 % (42.0-52.0); Hemoglobin 8.3 g/dL (14.0-18.0); Mean Corpuscular HGB CONC 32.2 g/dL (32.0-36.0); Mean Corpuscular Hemoglobin 29.4 pg (27.0-31.0); Mean Corpuscular Volume 91.5 fl (78.0-98.0); Mean Platelet Volume 9.9 fL (7.4-10.4); Platelet Count 396 10x3/uL (130-400); Red Blood Cell (RBC) Count 2.82 mill/uL (4.70-6.10); White Blood Cell (WBC) Count 14.9 10x3/uL (4.8-10.8)
[2023-08-27 09:27] LABS: Anion Gap 11 mmol/L (10-20); BUN (Urea Nitrogen) 17 mg/dL (8.4-25.7); Calc. Creatinine Clearance 87 mL/min (70-130); Calcium 8.2 mg/dL (7.8-10.44); Carbon Dioxide 25 mmol/L (23-31); Chloride 101 mmol/L (98-107); Estimated GFR 104; Glucose 133 mg/dL (83-110); Potassium 4.2 mmol/L (3.5-5.1); Sodium 133 mmol/L (136-145)
[2023-08-27] MEDS: guaiFENesin/DM ER PO SCH (09:43)
[2023-08-27] MEDS: Famotidine 20 MG TAB PO SCH ×2 (09:43→21:25)
[2023-08-27] MEDS: methylPREDNISolone Sod Succ 40 MG VIAL IVP SCH ×2 (09:43→21:25)
[2023-08-27] MEDS: dilTIAZem 30 MG TAB PO SCH ×4 (09:43→21:25)
[2023-08-27] MEDS: Multivitamin W/ Minerals 1 TAB PO SCH (09:44)
[2023-08-27] MEDS: Apixaban 5 MG TAB PO SCH ×2 (09:44→21:25)
[2023-08-27] MEDS: Nystatin Powder 15 GM BOT TOP SCH ×2 (10:09→21:26)
[2023-08-27] MEDS ORDERED: Dextrose 50% Abboject 50 ML SYRINGE SLOW IVP PRN (10:29)
[2023-08-27] MEDS ORDERED: Glucagon 1 MG/ML KIT IM PRN (10:29)
[2023-08-27] MEDS ORDERED: Dextrose 5% in Water 1,000 ML IV PRN (10:29)
[2023-08-27] MEDS ORDERED: HumaLOG 300 UNITS/3 ML VIAL SC PRN (10:29)
[2023-08-27] MEDS ORDERED: Insulin Glargine 30 UNITS/0.3 ML VIAL SC SCH (10:45)
[2023-08-27] MEDS: Terbinafine 1% Cream 15 GM Tube TOP SCH ×2 (14:29→21:25)
[2023-08-27] MEDS ORDERED: Benzonatate 100 MG CAP PO SCH (15:00)
[2023-08-27] MEDS: guaiFENesin ER 600 MG TAB PO SCH (21:25)
[2023-08-27] MEDS: Atorvastatin Calcium 40 MG TAB PO SCH (21:25)
[2023-08-27] MEDS: Benzonatate 100 MG CAP PO SCH (21:25)
[2023-08-27] MEDS: Iron, Sodium Ferric Gluconate 250 MG in Sodium Chloride 0.9% 250 ML 250 ML IVPB SCH (21:47)
[2023-08-28] MEDS: Ipratropium/Albuterol 3 ML NEB NEB SCH ×3 (02:53→10:47)
[2023-08-28] MEDS: Sodium Chloride 0.9% 1,000 ML IV SCH (04:36)
[2023-08-28] MEDS: Cefepime 2 GM in Sodium Chloride 0.9% 100 ML IVPB SCH ×2 (06:33→17:40)
[2023-08-28] MEDS: dilTIAZem 30 MG TAB PO SCH ×4 (06:33→20:00)
[2023-08-28] MEDS: Levothyroxine Sodium 25 MCG TAB PO SCH (06:33)
[2023-08-28] MEDS: Vancomycin (BATCH) 1.25 GM in Premix 1 BAG IVPB SCH ×2 (07:18→17:39)
[2023-08-28 07:31] LABS: #Monocytes 1.3 thou/uL (0.11-0.59); #Neutrophils 10.9 thou/uL (1.40-6.50); %Basophils 0.1 % (0.0-1.0); %Lymphocytes 6.9 % (21.0-51.0); %Monocytes 9.6 % (0.0-10.0); %Neutrophils 81.4 % (42.0-75.0); Hemoglobin 8.9 g/dL (14.0-18.0); Mean Corpuscular HGB CONC 31.8 g/dL (32.0-36.0); Mean Corpuscular Hemoglobin 29.3 pg (27.0-31.0); Mean Corpuscular Volume 92.1 fl (78.0-98.0); Platelet Count 369 10x3/uL (130-400); RBC Distribution Width 17.8 % (11.5-14.5); Red Blood Cell (RBC) Count 3.04 mill/uL (4.70-6.10); White Blood Cell (WBC) Count 13.3 10x3/uL (4.8-10.8)
[2023-08-28 07:50] LABS: Anion Gap 11 mmol/L (10-20); BUN (Urea Nitrogen) 16 mg/dL (8.4-25.7); Calc. Creatinine Clearance 89 mL/min (70-130); Carbon Dioxide 24 mmol/L (23-31); Chloride 99 mmol/L (98-107); Estimated GFR 105; Glucose 116 mg/dL (83-110); Potassium 4.1 mmol/L (3.5-5.1); Sodium 130 mmol/L (136-145)
[2023-08-28] MEDS: methylPREDNISolone Sod Succ 40 MG VIAL IVP SCH (08:41)
[2023-08-28] MEDS: Insulin Glargine 30 UNITS/0.3 ML VIAL SC SCH (08:41)
[2023-08-28] MEDS: Famotidine 20 MG TAB PO SCH ×2 (08:42→19:55)
[2023-08-28] MEDS: guaiFENesin ER 600 MG TAB PO SCH ×2 (08:42→19:55)
[2023-08-28] MEDS: Apixaban 5 MG TAB PO SCH ×2 (08:42→19:55)
[2023-08-28] MEDS: Multivitamin W/ Minerals 1 TAB PO SCH (08:42)
[2023-08-28] MEDS: Benzonatate 100 MG CAP PO SCH ×3 (08:42→19:55)
[2023-08-28] MEDS: Nystatin Powder 15 GM BOT TOP SCH ×2 (08:43→19:56)
[2023-08-28] MEDS: Terbinafine 1% Cream 15 GM Tube TOP SCH ×2 (08:43→19:56)
[2023-08-28] MEDS ORDERED: Ipratropium/Albuterol 3 ML NEB NEB SCH (12:30)
[2023-08-28] MEDS ORDERED: Ipratropium/Albuterol 3 ML NEB NEB PRN (14:49)
[2023-08-28] MEDS: Atorvastatin Calcium 40 MG TAB PO SCH (19:55)
[2023-08-28] MEDS: Iron, Sodium Ferric Gluconate 250 MG in Sodium Chloride 0.9% 250 ML 250 ML IVPB SCH (19:55)
[2023-08-29] MEDS: Cefepime 2 GM in Sodium Chloride 0.9% 100 ML IVPB SCH ×2 (04:54→16:43)
[2023-08-29] MEDS: Levothyroxine Sodium 25 MCG TAB PO SCH (06:36)
[2023-08-29] MEDS: Vancomycin (BATCH) 1.25 GM in Premix 1 BAG IVPB SCH ×2 (06:40→18:24)
[2023-08-29] MEDS: Sodium Chloride 0.9% 1,000 ML IV SCH ×2 (07:12→11:59)
[2023-08-29] MEDS: guaiFENesin ER 600 MG TAB PO SCH ×2 (08:23→20:27)
[2023-08-29] MEDS: Benzonatate 100 MG CAP PO SCH ×3 (08:23→20:27)
[2023-08-29] MEDS: Apixaban 5 MG TAB PO SCH ×2 (08:23→20:27)
[2023-08-29] MEDS: Famotidine 20 MG TAB PO SCH ×2 (08:23→20:27)
[2023-08-29] MEDS: dilTIAZem 30 MG TAB PO SCH ×4 (08:23→20:27)
[2023-08-29] MEDS: Insulin Glargine 30 UNITS/0.3 ML VIAL SC SCH (08:23)
[2023-08-29] MEDS: Multivitamin W/ Minerals 1 TAB PO SCH (08:23)
[2023-08-29] MEDS: Terbinafine 1% Cream 15 GM Tube TOP SCH ×2 (08:28→20:28)
[2023-08-29 08:29] LABS: #Monocytes 3.3 thou/uL (0.11-0.59); #Neutrophils 14.3 thou/uL (1.40-6.50); %Basophils 0.1 % (0.0-1.0); %Eosinophils 0.1 % (0.0-10.0); %Lymphocytes 12.8 % (21.0-51.0); %Monocytes 15.9 % (0.0-10.0); Hematocrit 31.4 % (42.0-52.0); Hemoglobin 10.1 g/dL (14.0-18.0); Mean Corpuscular HGB CONC 32.2 g/dL (32.0-36.0); Mean Corpuscular Volume 93.2 fl (78.0-98.0); Mean Platelet Volume 10.3 fL (7.4-10.4); Platelet Count 391 10x3/uL (130-400); RBC Distribution Width 17.6 % (11.5-14.5); Red Blood Cell (RBC) Count 3.37 mill/uL (4.70-6.10)
[2023-08-29] MEDS: Nystatin Powder 15 GM BOT TOP SCH ×2 (08:29→20:27)
[2023-08-29 08:54] LABS: Anion Gap 12 mmol/L (10-20); BUN (Urea Nitrogen) 16 mg/dL (8.4-25.7); Calc. Creatinine Clearance 100 mL/min (70-130); Carbon Dioxide 23 mmol/L (23-31); Chloride 98 mmol/L (98-107); Estimated GFR 109; Glucose 77 mg/dL (83-110); Potassium 4.2 mmol/L (3.5-5.1); Sodium 129 mmol/L (136-145)
[2023-08-29] MEDS ORDERED: methylPREDNISolone Sod Succ 40 MG VIAL IVP SCH (09:00)
[2023-08-29] MEDS ORDERED: Mometasone 200 MCG/Formoterol 5 MCG 120 PUFF INHALER INH SCH (11:30)
[2023-08-29] MEDS ORDERED: Furosemide 40 MG (4 mL) VIAL SLOW IVP SCH ×2 (13:00→21:00)
[2023-08-29] MEDS: Mometasone 200 MCG/Formoterol 5 MCG 120 PUFF INHALER INH SCH (18:41)
[2023-08-29] MEDS: Atorvastatin Calcium 40 MG TAB PO SCH (20:27)
[2023-08-29] MEDS: Iron, Sodium Ferric Gluconate 250 MG in Sodium Chloride 0.9% 250 ML 250 ML IVPB SCH (20:41)
[2023-08-30] MEDS: Cefepime 2 GM in Sodium Chloride 0.9% 100 ML IVPB SCH ×2 (04:58→17:44)
[2023-08-30] MEDS: GUAIFENESIN SF SOLN 200 MG/10 ML UDCUP PO PRN (04:59)
[2023-08-30] MEDS: Furosemide 40 MG (4 mL) VIAL SLOW IVP SCH ×2 (04:59→13:13)
[2023-08-30] MEDS: Levothyroxine Sodium 25 MCG TAB PO SCH (05:02)
[2023-08-30 05:48] LABS: Hematocrit 33.9 % (42.0-52.0); Hemoglobin 11.5 g/dL (14.0-18.0); Manual Diff?? YES; Mean Corpuscular HGB CONC 33.9 g/dL (32.0-36.0); Mean Corpuscular Hemoglobin 30.3 pg (27.0-31.0); Platelet Count 450 10x3/uL (130-400); RBC Distribution Width 17.3 % (11.5-14.5); Red Blood Cell (RBC) Count 3.79 mill/uL (4.70-6.10); White Blood Cell (WBC) Count 24.5 10x3/uL (4.8-10.8)
[2023-08-30 05:52] LABS: Delete Auto Diff?? YES; Mean Corpuscular Volume 89.4 fl (78.0-98.0)
[2023-08-30 06:11] LABS: Vancomycin, Trough 16.7 ug/mL
[2023-08-30 06:13] LABS: Anion Gap 11 mmol/L (10-20); BUN (Urea Nitrogen) 17 mg/dL (8.4-25.7); Calc. Creatinine Clearance 87 mL/min (70-130); Calcium 8.4 mg/dL (7.8-10.44); Carbon Dioxide 31 mmol/L (23-31); Chloride 92 mmol/L (98-107); Estimated GFR 104; Glucose 77 mg/dL (83-110); Potassium 3.6 mmol/L (3.5-5.1); Sodium 130 mmol/L (136-145)
[2023-08-30] MEDS: Vancomycin (BATCH) 1.25 GM in Premix 1 BAG IVPB SCH ×2 (06:23→20:21)
[2023-08-30] MEDS: dilTIAZem 30 MG TAB PO SCH ×4 (06:23→20:21)
[2023-08-30 06:47] LABS: Lymphocytes 9 % (21-51); Monocytes 12 % (0-10); Neutrophil 79 % (42-75)
[2023-08-30 06:49] LABS: Anisocytosis SLIGHT = 6-15 cells (100X) (0-5/hpf); Polychromasia SLIGHT = 2-3 cells (100X) (0-2/hpf); Stomatocytes SLIGHT = 2-5 cells (100X) (0-1/hpf); Target Cells SLIGHT = 2-5 cells (100X) (0-1/hpf)
[2023-08-30 06:50] LABS: Platelet Adequacy Comment Platelets Increased
[2023-08-30] MEDS: Multivitamin W/ Minerals 1 TAB PO SCH (08:35)
[2023-08-30] MEDS: Famotidine 20 MG TAB PO SCH ×2 (08:35→20:22)
[2023-08-30] MEDS: guaiFENesin ER 600 MG TAB PO SCH ×2 (08:35→20:21)
[2023-08-30] MEDS: Benzonatate 100 MG CAP PO SCH ×3 (08:35→20:21)
[2023-08-30] MEDS: Apixaban 5 MG TAB PO SCH ×2 (08:35→20:22)
[2023-08-30] MEDS: Insulin Glargine 30 UNITS/0.3 ML VIAL SC SCH (08:35)
[2023-08-30] MEDS: methylPREDNISolone Sod Succ 40 MG VIAL IVP SCH (08:36)
[2023-08-30] MEDS: Nystatin Powder 15 GM BOT TOP SCH ×2 (08:36→20:22)
[2023-08-30] MEDS: Terbinafine 1% Cream 15 GM Tube TOP SCH ×2 (08:36→20:22)
[2023-08-30] MEDS: Mometasone 200 MCG/Formoterol 5 MCG 120 PUFF INHALER INH SCH ×2 (08:51→19:23)
[2023-08-30] MEDS: Iron, Sodium Ferric Gluconate 250 MG in Sodium Chloride 0.9% 250 ML 250 ML IVPB SCH (17:48)
[2023-08-30] MEDS: Atorvastatin Calcium 40 MG TAB PO SCH (20:22)
[2023-08-31] MEDS: Cefepime 2 GM in Sodium Chloride 0.9% 100 ML IVPB SCH ×4 (05:28→22:48)
[2023-08-31] MEDS: Levothyroxine Sodium 25 MCG TAB PO SCH (05:28)
[2023-08-31] MEDS: Furosemide 40 MG (4 mL) VIAL SLOW IVP SCH ×3 (05:28→14:30)
[2023-08-31 05:53] LABS: #Basophils 0.1 thou/uL (0.0-0.2); #Eosinphils 0.3 thou/uL (0.0-0.7); #Monocytes 3.5 thou/uL (0.11-0.59); #Neutrophils 16.6 thou/uL (1.40-6.50); %Basophils 0.5 % (0.0-1.0); %Eosinophils 1.1 % (0.0-10.0); %Lymphocytes 9.9 % (21.0-51.0); %Neutrophils 70.7 % (42.0-75.0); Hematocrit 33.2 % (42.0-52.0); Hemoglobin 10.5 g/dL (14.0-18.0); Mean Corpuscular HGB CONC 31.6 g/dL (32.0-36.0); Mean Corpuscular Hemoglobin 30.2 pg (27.0-31.0); Mean Platelet Volume 10.8 fL (7.4-10.4); Platelet Count 375 10x3/uL (130-400); RBC Distribution Width 18.8 % (11.5-14.5); Red Blood Cell (RBC) Count 3.48 mill/uL (4.70-6.10); White Blood Cell (WBC) Count 23.5 10x3/uL (4.8-10.8)
[2023-08-31 05:59] LABS: Mean Corpuscular Volume 95.4 fl (78.0-98.0)
[2023-08-31 06:23] LABS: Anion Gap 12 mmol/L (10-20); BUN (Urea Nitrogen) 26 mg/dL (8.4-25.7); Calc. Creatinine Clearance 94 mL/min (70-130); Calcium 7.6 mg/dL (7.8-10.44); Carbon Dioxide 23 mmol/L (23-31); Chloride 98 mmol/L (98-107); Estimated GFR 107; Glucose 67 mg/dL (83-110); Potassium 3.9 mmol/L (3.5-5.1); Sodium 129 mmol/L (136-145)
[2023-08-31] MEDS: Mometasone 200 MCG/Formoterol 5 MCG 120 PUFF INHALER INH SCH ×2 (08:20→20:01)
[2023-08-31] MEDS: Apixaban 5 MG TAB PO SCH ×2 (09:24→21:30)
[2023-08-31] MEDS: guaiFENesin ER 600 MG TAB PO SCH ×2 (09:24→21:30)
[2023-08-31] MEDS: Famotidine 20 MG TAB PO SCH ×2 (09:24→21:30)
[2023-08-31] MEDS: Multivitamin W/ Minerals 1 TAB PO SCH (09:24)
[2023-08-31] MEDS: Benzonatate 100 MG CAP PO SCH ×3 (09:24→21:30)
[2023-08-31] MEDS: Insulin Glargine 30 UNITS/0.3 ML VIAL SC SCH (09:24)
[2023-08-31] MEDS: dilTIAZem 30 MG TAB PO SCH ×4 (09:24→21:28)
[2023-08-31] MEDS: Terbinafine 1% Cream 15 GM Tube TOP SCH ×2 (09:28→21:31)
[2023-08-31] MEDS: Nystatin Powder 15 GM BOT TOP SCH ×2 (09:28→21:31)
[2023-08-31] MEDS: Vancomycin (BATCH) 1.25 GM in Premix 1 BAG IVPB SCH ×3 (10:02→21:24)
[2023-08-31] MEDS: methylPREDNISolone Sod Succ 40 MG VIAL IVP SCH (10:06)
[2023-08-31] MEDS: Atorvastatin Calcium 40 MG TAB PO SCH (21:30)
[2023-09-01] MEDS: Levothyroxine Sodium 25 MCG TAB PO SCH (05:43)
[2023-09-01] MEDS: Furosemide 40 MG (4 mL) VIAL SLOW IVP SCH ×2 (05:43→14:00)
[2023-09-01] MEDS: Mometasone 200 MCG/Formoterol 5 MCG 120 PUFF INHALER INH SCH (07:57)
[2023-09-01] MEDS: Apixaban 5 MG TAB PO SCH ×2 (08:40→20:31)
[2023-09-01] MEDS: guaiFENesin ER 600 MG TAB PO SCH ×2 (08:40→20:31)
[2023-09-01] MEDS: Insulin Glargine 30 UNITS/0.3 ML VIAL SC SCH (08:40)
[2023-09-01] MEDS: Multivitamin W/ Minerals 1 TAB PO SCH (08:40)
[2023-09-01] MEDS: Famotidine 20 MG TAB PO SCH ×2 (08:40→20:31)
[2023-09-01] MEDS: dilTIAZem 30 MG TAB PO SCH ×4 (08:40→20:30)
[2023-09-01] MEDS: methylPREDNISolone Sod Succ 40 MG VIAL IVP SCH (08:41)
[2023-09-01] MEDS: Benzonatate 100 MG CAP PO SCH ×3 (08:41→20:31)
[2023-09-01] MEDS: Terbinafine 1% Cream 15 GM Tube TOP SCH ×2 (08:44→20:34)
[2023-09-01] MEDS: Nystatin Powder 15 GM BOT TOP SCH ×2 (08:44→20:35)
[2023-09-01 09:17] LABS: Hematocrit 35.1 % (42.0-52.0); Hemoglobin 11.4 g/dL (14.0-18.0); Manual Diff?? YES; Mean Corpuscular HGB CONC 32.5 g/dL (32.0-36.0); Mean Corpuscular Hemoglobin 30.3 pg (27.0-31.0); Mean Corpuscular Volume 93.4 fl (78.0-98.0); Mean Platelet Volume 10.5 fL (7.4-10.4); Platelet Count 383 10x3/uL (130-400); RBC Distribution Width 18.8 % (11.5-14.5); Red Blood Cell (RBC) Count 3.76 mill/uL (4.70-6.10); White Blood Cell (WBC) Count 27.7 10x3/uL (4.8-10.8)
[2023-09-01 09:25] LABS: Delete Auto Diff?? YES
[2023-09-01 09:52] LABS: Anion Gap 15 mmol/L (10-20); BUN (Urea Nitrogen) 26 mg/dL (8.4-25.7); Calc. Creatinine Clearance 77 mL/min (70-130); Calcium 8.1 mg/dL (7.8-10.44); Carbon Dioxide 28 mmol/L (23-31); Chloride 93 mmol/L (98-107); Estimated GFR 101; Glucose 136 mg/dL (83-110); Potassium 3.6 mmol/L (3.5-5.1); Sodium 132 mmol/L (136-145)
[2023-09-01 10:05] LABS: Anisocytosis SLIGHT = 6-15 cells (100X) (0-5/hpf); Eosinophils 1 % (0-10); Lymphocytes 6 % (21-51); Monocytes 11 % (0-10); Neutrophil 82 % (42-75); Ovalocytes SLIGHT = 2-5 cells (100X) (0-1/hpf); Platelet Adequacy Comment Appears Adequate; Polychromasia SLIGHT = 2-3 cells (100X) (0-2/hpf); Target Cells SLIGHT = 2-5 cells (100X) (0-1/hpf)
[2023-09-01] MEDS: Cefepime 2 GM in Sodium Chloride 0.9% 100 ML IVPB SCH (10:23)
[2023-09-01] MEDS: Vancomycin (BATCH) 1.25 GM in Premix 1 BAG IVPB SCH (11:04)
[2023-09-01] MEDS: Atorvastatin Calcium 40 MG TAB PO SCH (20:31)
[2023-09-02] MEDS: Mometasone 200 MCG/Formoterol 5 MCG 120 PUFF INHALER INH SCH ×3 (03:15→19:59)
[2023-09-02] MEDS: Furosemide 40 MG (4 mL) VIAL SLOW IVP SCH ×2 (05:55→14:29)
[2023-09-02] MEDS: Levothyroxine Sodium 25 MCG TAB PO SCH (05:55)
[2023-09-02] MEDS: LevoFLOXacin 750 MG TAB PO SCH (05:56)
[2023-09-02] MEDS: Apixaban 5 MG TAB PO SCH ×2 (08:09→21:57)
[2023-09-02] MEDS: predniSONE 20 MG TAB PO SCH (08:09)
[2023-09-02] MEDS: guaiFENesin ER 600 MG TAB PO SCH ×2 (08:09→21:57)
[2023-09-02] MEDS: Multivitamin W/ Minerals 1 TAB PO SCH (08:09)
[2023-09-02] MEDS: Famotidine 20 MG TAB PO SCH ×2 (08:09→21:57)
[2023-09-02] MEDS: Benzonatate 100 MG CAP PO SCH ×3 (08:09→21:57)
[2023-09-02] MEDS: dilTIAZem 30 MG TAB PO SCH ×4 (08:09→21:57)
[2023-09-02] MEDS: Insulin Glargine 30 UNITS/0.3 ML VIAL SC SCH (08:10)
[2023-09-02] MEDS: Nystatin Powder 15 GM BOT TOP SCH ×2 (08:19→22:11)
[2023-09-02] MEDS: Terbinafine 1% Cream 15 GM Tube TOP SCH ×2 (08:20→22:11)
[2023-09-02 09:27] LABS: Hematocrit 34.5 % (42.0-52.0); Hemoglobin 11.4 g/dL (14.0-18.0); Manual Diff?? YES; Mean Corpuscular Hemoglobin 30.6 pg (27.0-31.0); Mean Corpuscular Volume 92.7 fl (78.0-98.0); Platelet Count 367 10x3/uL (130-400); RBC Distribution Width 18.8 % (11.5-14.5); Red Blood Cell (RBC) Count 3.72 mill/uL (4.70-6.10); White Blood Cell (WBC) Count 25.5 10x3/uL (4.8-10.8)
[2023-09-02 09:52] LABS: Delete Auto Diff?? YES
[2023-09-02 09:54] LABS: Anion Gap 12 mmol/L (10-20); BUN (Urea Nitrogen) 26 mg/dL (8.4-25.7); Calc. Creatinine Clearance 100 mL/min (70-130); Calcium 8.4 mg/dL (7.8-10.44); Carbon Dioxide 31 mmol/L (23-31); Chloride 91 mmol/L (98-107); Estimated GFR 106; Glucose 97 mg/dL (83-110); Potassium 3.9 mmol/L (3.5-5.1); Sodium 130 mmol/L (136-145)
[2023-09-02 10:15] LABS: Lymphocytes 7 % (21-51); Metamyelocyte 2 % (0-0); Monocytes 8 % (0-10); Neutrophil 78 % (42-75); Platelet Adequacy Comment Platelets Normal; Polychromasia SLIGHT = 2-3 cells (100X) (0-2/hpf); Reactive Lymphocytes 5 % (0-10)
[2023-09-02 10:25] VITALS: BMI 20.1
[2023-09-02] MEDS: Atorvastatin Calcium 40 MG TAB PO SCH (21:57)
[2023-09-03] MEDS: GUAIFENESIN SF SOLN 200 MG/10 ML UDCUP PO PRN (03:31)
[2023-09-03] MEDS: LevoFLOXacin 750 MG TAB PO SCH (06:25)
[2023-09-03] MEDS: Levothyroxine Sodium 25 MCG TAB PO SCH (06:25)
[2023-09-03] MEDS: Furosemide 40 MG (4 mL) VIAL SLOW IVP SCH ×2 (06:26→14:40)
[2023-09-03] MEDS: Mometasone 200 MCG/Formoterol 5 MCG 120 PUFF INHALER INH SCH ×2 (07:56→19:14)
[2023-09-03] MEDS: Insulin Glargine 30 UNITS/0.3 ML VIAL SC SCH (08:41)
[2023-09-03] MEDS: dilTIAZem 30 MG TAB PO SCH ×4 (08:41→20:29)
[2023-09-03] MEDS: Benzonatate 100 MG CAP PO SCH ×3 (08:41→20:29)
[2023-09-03] MEDS: Apixaban 5 MG TAB PO SCH ×2 (08:41→20:28)
[2023-09-03] MEDS: predniSONE 20 MG TAB PO SCH (08:41)
[2023-09-03] MEDS: Multivitamin W/ Minerals 1 TAB PO SCH (08:41)
[2023-09-03] MEDS: guaiFENesin ER 600 MG TAB PO SCH ×2 (08:41→20:28)
[2023-09-03] MEDS: Famotidine 20 MG TAB PO SCH ×2 (08:41→20:28)
[2023-09-03 08:42] LABS: #Eosinphils 0.2 thou/uL (0.0-0.7); #Monocytes 3.2 thou/uL (0.11-0.59); #Neutrophils 18.2 thou/uL (1.40-6.50); %Basophils 0.2 % (0.0-1.0); %Eosinophils 0.9 % (0.0-10.0); %Lymphocytes 9.1 % (21.0-51.0); Hematocrit 36.3 % (42.0-52.0); Hemoglobin 12.1 g/dL (14.0-18.0); Mean Corpuscular HGB CONC 33.3 g/dL (32.0-36.0); Mean Corpuscular Hemoglobin 30.7 pg (27.0-31.0); Mean Corpuscular Volume 92.1 fl (78.0-98.0); Mean Platelet Volume 9.7 fL (7.4-10.4); Platelet Count 411 10x3/uL (130-400); RBC Distribution Width 18.7 % (11.5-14.5); Red Blood Cell (RBC) Count 3.94 mill/uL (4.70-6.10); White Blood Cell (WBC) Count 24.6 10x3/uL (4.8-10.8)
[2023-09-03] MEDS: Nystatin Powder 15 GM BOT TOP SCH ×2 (08:43→20:29)
[2023-09-03] MEDS: Terbinafine 1% Cream 15 GM Tube TOP SCH ×2 (08:43→20:29)
[2023-09-03 09:05] LABS: Anion Gap 14 mmol/L (10-20); BUN (Urea Nitrogen) 30 mg/dL (8.4-25.7); Calc. Creatinine Clearance 79 mL/min (70-130); Carbon Dioxide 30 mmol/L (23-31); Chloride 90 mmol/L (98-107); Estimated GFR 100; Glucose 68 mg/dL (83-110); Potassium 3.7 mmol/L (3.5-5.1); Sodium 130 mmol/L (136-145)
[2023-09-03] MEDS: Atorvastatin Calcium 40 MG TAB PO SCH (20:28)
[2023-09-04] MEDS: Levothyroxine Sodium 25 MCG TAB PO SCH (05:31)
[2023-09-04] MEDS: LevoFLOXacin 750 MG TAB PO SCH (05:31)
[2023-09-04] MEDS: Furosemide 40 MG (4 mL) VIAL SLOW IVP SCH ×2 (05:32→14:51)
[2023-09-04] MEDS: Mometasone 200 MCG/Formoterol 5 MCG 120 PUFF INHALER INH SCH ×2 (07:47→18:40)
[2023-09-04] MEDS ORDERED: predniSONE 20 MG TAB PO SCH (08:00)
[2023-09-04] MEDS: Multivitamin W/ Minerals 1 TAB PO SCH (09:07)
[2023-09-04] MEDS: Benzonatate 100 MG CAP PO SCH ×3 (09:08→20:25)
[2023-09-04] MEDS: predniSONE 20 MG TAB PO SCH (09:08)
[2023-09-04] MEDS: guaiFENesin ER 600 MG TAB PO SCH ×2 (09:08→20:25)
[2023-09-04] MEDS: dilTIAZem 30 MG TAB PO SCH ×4 (09:09→20:25)
[2023-09-04] MEDS: Famotidine 20 MG TAB PO SCH ×2 (09:09→20:25)
[2023-09-04] MEDS: Insulin Glargine 30 UNITS/0.3 ML VIAL SC SCH (09:09)
[2023-09-04] MEDS: Apixaban 5 MG TAB PO SCH ×2 (09:09→20:25)
[2023-09-04] MEDS: Terbinafine 1% Cream 15 GM Tube TOP SCH ×2 (09:20→20:28)
[2023-09-04] MEDS: Nystatin Powder 15 GM BOT TOP SCH ×2 (09:20→20:28)
[2023-09-04] MEDS: GUAIFENESIN SF SOLN 200 MG/10 ML UDCUP PO PRN (18:37)
[2023-09-04] MEDS: Atorvastatin Calcium 40 MG TAB PO SCH (20:25)
[2023-09-05] MEDS: LevoFLOXacin 750 MG TAB PO SCH (06:20)
[2023-09-05] MEDS: Furosemide 40 MG (4 mL) VIAL SLOW IVP SCH ×2 (06:20→14:53)
[2023-09-05] MEDS: Levothyroxine Sodium 25 MCG TAB PO SCH (06:20)
[2023-09-05] MEDS: Mometasone 200 MCG/Formoterol 5 MCG 120 PUFF INHALER INH SCH ×2 (07:48→19:05)
[2023-09-05] MEDS: dilTIAZem 30 MG TAB PO SCH ×4 (07:53→21:52)
[2023-09-05] MEDS: predniSONE 20 MG TAB PO SCH (07:53)
[2023-09-05] MEDS: Benzonatate 100 MG CAP PO SCH ×3 (08:23→21:52)
[2023-09-05] MEDS: Multivitamin W/ Minerals 1 TAB PO SCH (08:23)
[2023-09-05] MEDS: Famotidine 20 MG TAB PO SCH ×2 (08:23→22:00)
[2023-09-05] MEDS: guaiFENesin ER 600 MG TAB PO SCH ×2 (08:23→21:52)
[2023-09-05] MEDS: Apixaban 5 MG TAB PO SCH ×2 (08:23→21:52)
[2023-09-05] MEDS: Insulin Glargine 30 UNITS/0.3 ML VIAL SC SCH (08:23)
[2023-09-05] MEDS: Terbinafine 1% Cream 15 GM Tube TOP SCH ×2 (08:27→21:54)
[2023-09-05] MEDS: Nystatin Powder 15 GM BOT TOP SCH ×2 (08:27→21:54)
[2023-09-05] MEDS: Atorvastatin Calcium 40 MG TAB PO SCH (21:52)
[2023-09-06] MEDS: Furosemide 40 MG (4 mL) VIAL SLOW IVP SCH ×2 (06:11→13:41)
[2023-09-06] MEDS: Levothyroxine Sodium 25 MCG TAB PO SCH (06:11)
[2023-09-06] MEDS: LevoFLOXacin 750 MG TAB PO SCH (06:11)
[2023-09-06] MEDS: Mometasone 200 MCG/Formoterol 5 MCG 120 PUFF INHALER INH SCH ×2 (07:51→19:21)
[2023-09-06] MEDS: Apixaban 5 MG TAB PO SCH ×2 (08:11→20:19)
[2023-09-06] MEDS: predniSONE 20 MG TAB PO SCH (08:11)
[2023-09-06] MEDS: Multivitamin W/ Minerals 1 TAB PO SCH (08:12)
[2023-09-06] MEDS: Benzonatate 100 MG CAP PO SCH ×3 (08:12→20:19)
[2023-09-06] MEDS: Insulin Glargine 30 UNITS/0.3 ML VIAL SC SCH (08:12)
[2023-09-06] MEDS: Famotidine 20 MG TAB PO SCH ×2 (08:12→20:19)
[2023-09-06] MEDS: dilTIAZem 30 MG TAB PO SCH ×4 (08:12→20:19)
[2023-09-06] MEDS: guaiFENesin ER 600 MG TAB PO SCH ×2 (08:14→20:18)
[2023-09-06] MEDS: Nystatin Powder 15 GM BOT TOP SCH ×2 (08:15→20:20)
[2023-09-06] MEDS: Terbinafine 1% Cream 15 GM Tube TOP SCH ×2 (08:15→20:21)
[2023-09-06] MEDS ORDERED: Electrolyte Replacement Protocol FS PRN (11:00)
[2023-09-06] MEDS: Atorvastatin Calcium 40 MG TAB PO SCH (20:19)
[2023-09-07] MEDS: Levothyroxine Sodium 25 MCG TAB PO SCH (06:04)
[2023-09-07] MEDS: LevoFLOXacin 750 MG TAB PO SCH (06:04)
[2023-09-07] MEDS: Furosemide 40 MG (4 mL) VIAL SLOW IVP SCH (06:04)
[2023-09-07] MEDS: predniSONE 20 MG TAB PO SCH (08:56)
[2023-09-07] MEDS: Multivitamin W/ Minerals 1 TAB PO SCH (08:57)
[2023-09-07] MEDS: Nystatin Powder 15 GM BOT TOP SCH (08:57)
[2023-09-07] MEDS: guaiFENesin ER 600 MG TAB PO SCH (08:57)
[2023-09-07] MEDS: dilTIAZem 30 MG TAB PO SCH ×2 (08:57→11:15)
[2023-09-07] MEDS: Apixaban 5 MG TAB PO SCH (08:57)
[2023-09-07] MEDS: Benzonatate 100 MG CAP PO SCH (08:57)
[2023-09-07] MEDS: Terbinafine 1% Cream 15 GM Tube TOP SCH (08:57)
[2023-09-07] MEDS: Insulin Glargine 30 UNITS/0.3 ML VIAL SC SCH (08:57)
[2023-09-07] MEDS: Mometasone 200 MCG/Formoterol 5 MCG 120 PUFF INHALER INH SCH (10:41)
[2023-09-07] MEDS: Famotidine 20 MG TAB PO SCH (11:15)
[2023-09-07 13:14] VITALS: BP 123/62; TEMP 97.9
== END 2023-09-07 14:53 | disposition home or self-care (01) | DRG 871 ==
LOC: ERS 12:22 → 2NO 16:07 → MSONC 08-22 14:15
PROVIDERS: ADMIT Hospitalist; ATTEND Internal Medicine
PROC: 3E03329 Introduction of Other Anti-infective into Peripheral Vein, Percutaneous Approach (ICD-10-PCS; 2023-08-20)
PROC: 30233N1 Transfusion of Nonautologous Red Blood Cells into Peripheral Vein, Percutaneous Approach (ICD-10-PCS; principal; 2023-08-23)
DX: A41.9 Sepsis, unspecified organism (principal); E43 Unspecified severe protein-calorie malnutrition; J18.9 Pneumonia, unspecified organism; J96.01 Acute respiratory failure with hypoxia; L03.116 Cellulitis of left lower limb; I69.351 Hemiplegia and hemiparesis following cerebral infarction affecting right dominant side; Z68.1 Body mass index [BMI] 19.9 or less, adult; E87.1 Hypo-osmolality and hyponatremia; R64 Cachexia; J44.1 Chronic obstructive pulmonary disease with (acute) exacerbation; R65.20 Severe sepsis without septic shock; C43.61 Malignant melanoma of right upper limb, including shoulder; R62.7 Adult failure to thrive; I48.91 Unspecified atrial fibrillation; I73.9 Peripheral vascular disease, unspecified; L97.529 Non-pressure chronic ulcer of other part of left foot with unspecified severity; F17.210 Nicotine dependence, cigarettes, uncomplicated; R53.1 Weakness; Z66 Do not resuscitate; E03.9 Hypothyroidism, unspecified; E87.70 Fluid overload, unspecified; L89.152 Pressure ulcer of sacral region, stage 2; R91.1 Solitary pulmonary nodule; R53.81 Other malaise; B35.3 Tinea pedis; F32.A Depression, unspecified; E83.42 Hypomagnesemia; D64.9 Anemia, unspecified; Z79.899 Other long term (current) drug therapy; Z79.890 Hormone replacement therapy; Z98.890 Other specified postprocedural states; Z98.49 Cataract extraction status, unspecified eye; Z79.01 Long term (current) use of anticoagulants
CPT/HCPCS: 36415; 36416; 36430; 71045; 71250; 80048; 80053; 80202; 82274; 82607; 82728; 82805; 83540; 83605; 83735; 83880; 84100; 84484; 85025; 85046; 86850; 86900; 86901; 87040; 87077; 87081; 87149; 87505; 93005; 94640; 94664; 96365; 97139; J0692; J1815; J1940; J2916; J2920; J2930; J3370; J3370-JW; J3475; J3490; J7050; J7512; J7611; J7620; P9016

== ENCOUNTER 2023-09-26 17:36 | Emergency (ER) | payer OTHER, MEDICARE | END 2023-09-26 19:03 | LOC: ERS 17:36 | DX: L03.113 Cellulitis of right upper limb (principal); C80.1 Malignant (primary) neoplasm, unspecified; J44.9 Chronic obstructive pulmonary disease, unspecified; I48.91 Unspecified atrial fibrillation; Z86.73 Personal history of transient ischemic attack (TIA), and cerebral infarction without residual deficits; Z79.899 Other long term (current) drug therapy | CPT/HCPCS: 99283 ==